=== PATIENT | female | born 1935 | race Caucasian/White ===

== ENCOUNTER 2017-01-23 08:34 | Observation (INO) | payer MEDICARE ==
[2017-01-23 08:34] VITALS: BMI 24.3
[2017-01-23] MEDS ORDERED: DiphenhydrAMINE 50 mg/ml Inj IVP STA ×2 (08:55→17:08)
[2017-01-23] MEDS ORDERED: Sodium Chloride 0.9% 500 ML IV ONE ×2 (08:56→09:35)
[2017-01-23] MEDS ORDERED: DiphenhydrAMINE 50 mg/ml Inj ONE (09:35)
--- NOTE | 2017-01-23 10:12 | C.PDOC ---
History Of Present Illness 81 y/o female presents to the ED for evaluation of lip swelling since yesterday. Patient states that her symptoms developed after coming back from [facility] yesterday. Patient states that her lips were significantly more swollen this morning, which prompted to her visit ED. Notes taking benazepril for approximately 6 months. Otherwise, denies any itchiness, rash, redness, shortness of breath, sensation of throat closing, chest pain, fever/chills. Time Seen by Provider: 01/23/17 08:36 Chief Complaint (Nursing): Allergic Reaction History Per: Patient History/Exam Limitations: no limitations Onset/Duration Of Symptoms: Days (1) Current Symptoms Are (Timing): Still Present Possible Cause: ALEXIS Inhibitor Associated Symptoms: Swelling (lips). denies: Skin Rash, Dyspnea, Trouble Swallowing, Dizziness, Itching, Redness, Chest Pain Severity: Moderate Additional History Per: Patient Past Medical History Reviewed: Historical Data, Nursing Documentation, Vital Signs Vital Signs: Last Vital Signs Temp 98.8 F 01/24/17 08:57 Pulse 62 01/24/17 08:57 Resp 20 01/24/17 08:57 BP 159/71 H 01/24/17 10:17 Pulse Ox 97 01/24/17 08:57 - Medical History PMH: Alzheimer's Disease, Dementia, Gastritis, HTN, Hypercholesterolemia Surgical History: Appendectomy Family History: States: No Known Family Hx - Social History Hx Tobacco Use: No Hx Alcohol Use: No Hx Substance Use: No - Immunization History Hx Tetanus Toxoid Vaccination: No Hx Influenza Vaccination: No Hx Pneumococcal Vaccination: No Review Of Systems Except As Marked, All Systems Reviewed And Found Negative. Constitutional: Negative for: Fever, Chills ENT: Negative for: Throat Pain Cardiovascular: Negative for: Chest Pain, Palpitations Respiratory: Negative for: Cough, Shortness of Breath Gastrointestinal: Negative for: Nausea, Vomiting Skin: Positive for: Other (lip swelling). Negative for: Rash Physical Exam - Physical Exam Appears: Well, Non-toxic, No Acute Distress Skin: Normal Color, Warm, Dry, No Rash Head: Atraumatic, Normacephalic Eye(s): bilateral: Normal Inspection Nose: Normal Tongue: Normal Appearing, No Swelling Lips: Swelling (moderate swelling up lips) Throat: Normal, No Erythema, No Exudate, No Drooling Neck: Normal ROM, Supple Cardiovascular: Rhythm Regular Respiratory: Normal Breath Sounds, No Accessory Muscle Use, No Rales, No Rhonchi , No Stridor, No Wheezing, Other (speaking in full sentences) Gastrointestinal/Abdominal: Normal Exam, Bowel Sounds, Soft, No Tenderness Neurological/Psych: Oriented x3 ED Course And Treatment - Laboratory Results Result Diagrams: 01/24/17 11:33 01/24/17 11:33 ECG: Interpreted By Me, Viewed By Me ECG Rhythm: Sinus Rhythm ECG Interpretation: Normal, No Acute Changes Interpretation Of ECG: Normal axis. No acute ST/T wave changes. Rate From EC (bpm) O2 Sat by Pulse Oximetry: 99 (on RA) Pulse Ox Interpretation: Normal - Other Rad CXR X-Ray: Viewed By Me, Read By Radiologist Interpretation: Accession No. : [id number]. Patient Name / ID : GRETA WEIR / [id number]. Exam Date : 01/23/2017 09:36:00 ( Approved ). Study Comment : Sex / Age : F / 81Y. Creator : Derek Kearney MD. Dictator : Derek Kearney MD. Market Reporter : Sequencing Machine Operator : Derek Kearney MD. Approver2 : Report Date : 01/23/2017 10:44:14. My Comment : . PROCEDURE: CHEST RADIOGRAPH, 1 VIEW. HISTORY: angioedema. COMPARISON: 08/03/2016. FINDINGS: LUNGS: Mild venous congestion. Patchy bibasilar airspace opacities. Right hilar prominence. Upper lobe granulomatous changes. PLEURA: No pneumothorax or pleural fluid seen. CARDIOVASCULAR: Normal. OSSEOUS STRUCTURES: Degenerative changes in the spine and shoulders. VISUALIZED UPPER ABDOMEN: Normal. OTHER FINDINGS: None. IMPRESSION: Mild venous congestion. Patchy bibasilar airspace opacities. Right hilar prominence. Upper lobe granulomatous changes. Progress Note: Blood work, EKG, CXR ordered and reviewed. Patient was treated with IV Benadryl, Solu-Medrol, Pepcid, and IV NS bolus. Symptoms likely due to alexis inhibitor - patient will need obs tele. - Physician Consult Information Physician Contacted: Nathan Allan Outcome Of Conversation: Discussed patient with Dr. Allan, agrees with telemetry obs to his service for lip swelling, likely due to alexis inhibitor angioedema. Disposition - Disposition Disposition: HOSPITALIZED Disposition Time: 11:11 Condition: STABLE - Clinical Impression Clinical Impression: ALEXIS inhibitor-aggravated angioedema, Lip swelling - Scribe Statement The provider has reviewed the documentation as recorded by the Scribe Leni Adler All medical record entries made by the Scribe were at my direction and personally dictated by me. I have reviewed the chart and agree that the record accurately reflects my personal performance of the history, physical exam, medical decision making, and the department course for this patient. I have also personally directed, reviewed, and agree with the discharge instructions and disposition. Decision To Admit - Pt Status Changed To: Hospital Disposition Of: Observation - . Bed Request Type: Telemetry Admitting Physician: Nathan Allan Patient Diagnosis: ALEXIS inhibitor-aggravated angioedema, Lip swelling
[2017-01-23 10:36] LABS: ALBUMIN 3.7 g/dL (3.5-5.0); BASO # 0.1 K/uL (0.0-0.2); BASO % 1.1 % (0.0-2.0); EOS # 0.2 K/uL (0.0-0.7); HEMOGLOBIN 12.3 g/dL (11.0-16.0); LYMPH # 1.8 K/uL (1.0-4.3); LYMPH % 17.8 % (20.0-40.0); MEAN CELL VOLUME 83.9 fL (81.0-99.0); MEAN CORPUSCULAR HEMOGLOBIN 26.4 pg (27.0-31.0); MEAN CORPUSCULAR HGB CONC 31.5 g/dL (33.0-37.0); MEAN PLATELET VOLUME 10.6 fL (7.2-11.7); MONO # 0.5 K/uL (0.0-0.8); MONO % 4.9 % (0.0-10.0); NEUT # 7.5 K/uL (1.8-7.0); NEUT % 74.2 % (50.0-75.0); RBC 4.64 Mil/uL (3.80-5.20); RED CELL DISTRIBUTION WIDTH 13.2 % (11.5-14.5); WHITE BLOOD COUNT 10.1 K/uL (4.8-10.8)
[2017-01-23 10:39] LABS: ALT/SGPT 67 U/L (9-52); AST/SGOT 65 U/L (14-36); BLOOD UREA NITROGEN 21 mg/dL (7-17); GFR AFRICAN-AMERICAN > 60; GFR NON-AFRICAN AMERICAN > 60
[2017-01-23 10:40] LABS: CALCIUM 8.8 mg/dl (8.6-10.4)
--- NOTE | 2017-01-23 10:46 | RAD ---
PROCEDURE: CHEST RADIOGRAPH, 1 VIEW HISTORY: angioedema COMPARISON: 08/03/2016 FINDINGS: LUNGS: Mild venous congestion. Patchy bibasilar airspace opacities. Right hilar prominence. Upper lobe granulomatous changes. PLEURA: No pneumothorax or pleural fluid seen. CARDIOVASCULAR: Normal. OSSEOUS STRUCTURES: Degenerative changes in the spine and shoulders. VISUALIZED UPPER ABDOMEN: Normal. OTHER FINDINGS: None. IMPRESSION: Mild venous congestion. Patchy bibasilar airspace opacities. Right hilar prominence. Upper lobe granulomatous changes.
[2017-01-23 16:36] VITALS: RESP 20
--- NOTE | 2017-01-23 17:49 | CP.PCM.HP ---
<DimasShannan DaleMiquel - Last Filed: 01/23/17 18:57> History of Present Illness - History of Present Illness History of Present Illness: cc: swollen lips Patient is a 81 F with pmh HTN and bradycardia, hypercholesterolemia, gastritis , dementia who presents to ED this morning for swollen lips. Patient woke up at 1am to go to the bathroom and noticed that her lips were swollen in the mirror. Patient went back to sleep and when she awoke at 7am her lips were extremely swollen. Patient's family member called the ambulance. Patient has never had an episode like this previously. Patient denies shortness of breath, cough, sore throat, itching, lip pain, chest pain, palpitations, abdominal pain, nausea, vomiting, constipation, or diarrhea. Patient has not started on any new medications. Patient took none of her medications this morning, but is normally compliant. PMD: Dr. Centeno PMHx: HTN, bradycardia, hypercholesterolemia, gastritis, dementia Psurgical: surgery for achalasia, hemicolectomy Social: denies tobacco, alcohol, drugs, lives in a snf home Meds: Amlodipine/Benezepril 10mg/40mg Aspirin 81mg Carvedilol 12.5 mg BID Protonix 40 mg daily Present on Admission - Present on Admission Any Indicators Present on Admission: No Review of Systems - Constitutional Constitutional: absent: Chills, Daytime Sleepiness, Headache - EENT Eyes: absent: Blurred Vision, Diplopia Ears: absent: Decreased Hearing Nose/Mouth/Throat: Lip Swelling. absent: Hoarsness, Mouth Pain, Sore Throat, Throat Swelling, Tongue Swelling - Cardiovascular Cardiovascular: absent: Chest Pain, Chest Pain with Activity, Diaphoresis, Dyspnea, Dyspnea on Exertion, Edema, Lightheadedness, Palpitations - Respiratory Respiratory: absent: Cough, Wheezing, Stridor, Pain on Inspiration, Chest Congestion - Gastrointestinal Gastrointestinal: absent: Abdominal Pain, Change in Bowel Habits, Constipation, Diarrhea - Genitourinary Genitourinary: absent: Change in Urinary Stream - Integumentary Integumentary: absent: Lesions, Rash, Swelling - Neurological Neurological: Memory Loss. absent: Dizziness, Headaches - Psychiatric Psychiatric: Memory Loss. absent: Behavioral Changes - Endocrine Endocrine: absent: Excessive Sweating, Fatigue - Hematologic/Lymphatic Hematologic: absent: Easy Bleeding, Easy Bruising Past Patient History - Infectious Disease Hx of Infectious Diseases: None - Tetanus Immunizations Tetanus Immunization: Unknown - Past Medical History & Family History Past Medical History?: Yes - Past Social History Smoking Status: Never Smoked - CARDIAC Hx Hypercholesterolemia: Yes Hx Hypertension: Yes - PULMONARY Hx Respiratory Disorders: No - NEUROLOGICAL Hx Alzheimer's Disease: Yes Hx Dementia: Yes - HEENT Hx HEENT Problems: No - RENAL Hx Chronic Kidney Disease: No - ENDOCRINE/METABOLIC Hx Endocrine Disorders: No - HEMATOLOGICAL/ONCOLOGICAL Hx Hepatitis C: Yes - INTEGUMENTARY Hx Dermatological Problems: No - MUSCULOSKELETAL/RHEUMATOLOGICAL Hx Falls: No - GASTROINTESTINAL Hx Crohn's Disease: No Hx Gastritis: Yes - GENITOURINARY/GYNECOLOGICAL Hx Genitourinary Disorders: No - PSYCHIATRIC Hx Substance Use: No - SURGICAL HISTORY Hx Appendectomy: Yes - ANESTHESIA Hx Anesthesia: Yes Hx Anesthesia Reactions: No Hx Malignant Hyperthermia: No Meds Allergies/Adverse Reactions: Allergies Allergy/AdvReac Type Severity Reaction Status Date / Time No Known Allergies Allergy Verified 01/23/17 08:42 Physical Exam - Constitutional Appears: Well, Non-toxic, No Acute Distress - Head Exam Head Exam: ATRAUMATIC, NORMAL INSPECTION, NORMOCEPHALIC - Eye Exam Eye Exam: EOMI, Normal appearance, PERRL - ENT Exam ENT Exam: Mucous Membranes Moist Additional comments: both lips swollen - Expanded ENT Exam Expanded Mouth exam: tongue normal Throat exam: Normal Inspection. absent: Post Pharyngeal Edema - Neck Exam Neck exam: Positive for: Full Rom, Normal Inspection. Negative for: Lymphadenopathy - Respiratory Exam Respiratory Exam: Clear to Auscultation Bilateral, NORMAL BREATHING PATTERN. absent: Rales, Rhonchi, Wheezes, Respiratory Distress, Stridor - Cardiovascular Exam Cardiovascular Exam: REGULAR RHYTHM, RRR. absent: Systolic Murmur - GI/Abdominal Exam GI & Abdominal Exam: Normal Bowel Sounds, Soft. absent: Distended, Firm, Guarding, Tenderness - Extremities Exam Extremities exam: Positive for: normal inspection. Negative for: calf tenderness, pedal edema, tenderness - Back Exam Back exam: NORMAL INSPECTION. absent: rash noted - Neurological Exam Neurological exam: Alert, Oriented x3 - Psychiatric Exam Psychiatric exam: Normal Affect, Normal Mood - Skin Skin Exam: Intact, Normal Color, Warm Results - Vital Signs Recent Vital Signs: Last Vital Signs Temp 97.9 F 01/23/17 15:34 Pulse 69 01/23/17 15:34 Resp 20 01/23/17 15:34 BP 146/78 01/23/17 17:29 Pulse Ox 98 01/23/17 15:34 - Labs Result Diagrams: 01/23/17 10:22 01/23/17 10:22 Assessment & Plan - Assessment and Plan (Free Text) Assessment: 1. Angioedema most likely secondary to ACEI (home medication: Benazepril) Benadryl 25 mg and [id number] given in ED Benadryl 25mg given at 3pm (continue Benadryl 25mg BID) 2.HTN Amlodipine 10 mg PO daily Aspirin 81 mg PO daily Carvedilol 12.5 mg PO BID 3. Prophylactic Measure Heparin 5000 u SC Q12 SCDs Pepcid 20 mg PO BID <Nathan Allan - Last Filed: 01/24/17 13:38> Results - Vital Signs Recent Vital Signs: Last Vital Signs Temp 98.8 F 01/24/17 08:57 Pulse 62 01/24/17 08:57 Resp 20 01/24/17 08:57 BP 159/71 H 01/24/17 10:17 Pulse Ox 97 01/24/17 08:57 - Labs Result Diagrams: 01/24/17 11:33 01/24/17 11:33 Labs: Laboratory Results - last 24 hr 01/24/17 01/24/17 11:33 11:33 WBC 15.2 H D RBC 4.64 Hgb 12.3 Hct 38.5 MCV 83.0 MCH 26.6 L MCHC 32.0 L RDW 13.2 Plt Count 268 MPV 10.8 Neut % (Auto) 85.5 H Lymph % (Auto) 11.2 L [place] % (Auto) 2.9 Eos % (Auto) 0.0 Baso % (Auto) 0.4 Neut # 13.0 H Lymph # 1.7 [place] # 0.4 Eos # 0.0 Baso # 0.1 Sodium 137 Potassium 4.4 Chloride 99 Carbon Dioxide 27 Anion Gap 16 BUN 18 H Creatinine 0.8 Est GFR ( Amer) > 60 Est GFR (Non-Af Amer) > 60 Random Glucose 175 H Calcium 9.5 Total Bilirubin 0.6 AST 39 H D ALT 65 H Alkaline Phosphatase 103 Total Protein 7.6 Albumin 3.9 Globulin 3.7 Albumin/Globulin Ratio 1.1 Attending/Attestation - Attestation I have personally seen and examined this patient.: Yes I have fully participated in the care of the patient.: Yes I have reviewed all pertinent clinical information: Yes Notes (Text): 01/24/17 13:37 Patient seen and examined at bedside with the resident Patient is admitted for angioedema secondary to ALEXIS inhibitor She does not have any respiratory distress She received a stat dose of IV Solu-Medrol in the ER We will start the patient on prednisone and Benadryl We will monitor for any swelling of the tongue or throat I discussed the plan of care with the resident and agree with the history and physical and assessment/plan documented by the resident.
[2017-01-24 08:59] VITALS: BP 159/71; PULSE 62; TEMP 98.8
[2017-01-24] MEDS ORDERED: Pantoprazole 40 mg EC Tab PO SCH (10:00)
[2017-01-24 11:39] LABS: BASO # 0.1 K/uL (0.0-0.2); HEMOGLOBIN 12.3 g/dL (11.0-16.0); MONO # 0.4 K/uL (0.0-0.8); MONO % 2.9 % (0.0-10.0)
[2017-01-24 11:47] LABS: BASO % 0.4 % (0.0-2.0); LYMPH # 1.7 K/uL (1.0-4.3); LYMPH % 11.2 % (20.0-40.0); MEAN CORPUSCULAR HEMOGLOBIN 26.6 pg (27.0-31.0); MEAN PLATELET VOLUME 10.8 fL (7.2-11.7); NEUT % 85.5 % (50.0-75.0); RBC 4.64 Mil/uL (3.80-5.20); RED CELL DISTRIBUTION WIDTH 13.2 % (11.5-14.5)
[2017-01-24 11:53] LABS: ALBUMIN 3.9 g/dL (3.5-5.0)
[2017-01-24 11:55] LABS: GFR AFRICAN-AMERICAN > 60; GFR NON-AFRICAN AMERICAN > 60
[2017-01-24 11:56] LABS: ALB/GLOB RATIO 1.1 (1.0-2.1); ALT/SGPT 65 U/L (9-52); AST/SGOT 39 U/L (14-36); BLOOD UREA NITROGEN 18 mg/dL (7-17); CALCIUM 9.5 mg/dl (8.6-10.4); WHITE BLOOD COUNT 15.2 K/uL (4.8-10.8)
[2017-01-24] MEDS ORDERED: Pneumococcal 23-Valent Vaccine IM ONE (15:01)
--- NOTE | 2017-01-24 15:09 | CP.PCM.DIS ---
<Shannan Cochran - Last Filed: 01/24/17 15:01> Provider - Provider Date of Admission: 01/23/17 11:11 Attending physician: Nathan Allan MD Primary care physician: Dr. Centeno Time Spent in preparation of Discharge (in minutes): 45 Diagnosis - Discharge Diagnosis (1) Angioedema Status: Acute Comment: please see summary for details (2) Hypertension Status: Acute Comment: please see summary for details Hospital Course - Lab Results Lab Results: Most Recent Lab Values WBC 15.2 K/uL (4.8-10.8) H D 01/24/17 11:33 RBC 4.64 Mil/uL (3.80-5.20) 01/24/17 11:33 Hgb 12.3 g/dL (11.0-16.0) 01/24/17 11:33 Hct 38.5 % (34.0-47.0) 01/24/17 11:33 MCV 83.0 fL (81.0-99.0) 01/24/17 11:33 MCH 26.6 pg (27.0-31.0) L 01/24/17 11:33 MCHC 32.0 g/dL (33.0-37.0) L 01/24/17 11:33 RDW 13.2 % (11.5-14.5) 01/24/17 11:33 Plt Count 268 K/uL (130-400) 01/24/17 11:33 MPV 10.8 fL (7.2-11.7) 01/24/17 11:33 Neut % (Auto) 85.5 % (50.0-75.0) H 01/24/17 11:33 Lymph % (Auto) 11.2 % (20.0-40.0) L 01/24/17 11:33 [place] % (Auto) 2.9 % (0.0-10.0) 01/24/17 11:33 Eos % (Auto) 0.0 % (0.0-4.0) 01/24/17 11:33 Baso % (Auto) 0.4 % (0.0-2.0) 01/24/17 11:33 Neut # 13.0 K/uL (1.8-7.0) H 01/24/17 11:33 Lymph # 1.7 K/uL (1.0-4.3) 01/24/17 11:33 [place] # 0.4 K/uL (0.0-0.8) 01/24/17 11:33 Eos # 0.0 K/uL (0.0-0.7) 01/24/17 11:33 Baso # 0.1 K/uL (0.0-0.2) 01/24/17 11:33 Sodium 137 mmol/L (132-148) 01/24/17 11:33 Potassium 4.4 mmol/L (3.6-5.2) 01/24/17 11:33 Chloride 99 mmol/L (98-107) 01/24/17 11:33 Carbon Dioxide 27 mmol/L (22-30) 01/24/17 11:33 Anion Gap 16 (10-20) 01/24/17 11:33 BUN 18 mg/dL (7-17) H 01/24/17 11:33 Creatinine 0.8 MG/DL (0.7-1.2) 01/24/17 11:33 Est GFR ( Amer) > 60 01/24/17 11:33 Est GFR (Non-Af Amer) > 60 01/24/17 11:33 Random Glucose 175 mg/dL (65-105) H 01/24/17 11:33 Calcium 9.5 mg/dl (8.6-10.4) 01/24/17 11:33 Total Bilirubin 0.6 mg/dL (0.2-1.3) 01/24/17 11:33 AST 39 U/L (14-36) H D 01/24/17 11:33 ALT 65 U/L (9-52) H 01/24/17 11:33 Alkaline Phosphatase 103 U/L (38-126) 01/24/17 11:33 Total Creatine Kinase 70 U/L (30-135) 01/23/17 10:22 Troponin I < 0.0120 ng/mL (0.00-0.120) 01/23/17 10:22 Total Protein 7.6 g/dL (6.3-8.3) 01/24/17 11:33 Albumin 3.9 g/dL (3.5-5.0) 01/24/17 11:33 Globulin 3.7 gm/dL (2.2-3.9) 01/24/17 11:33 Albumin/Globulin Ratio 1.1 (1.0-2.1) 01/24/17 11:33 - Hospital Course Hospital Course: "cc: swollen lips Patient is a 81 F with pmh HTN and bradycardia, hypercholesterolemia, gastritis , dementia who presents to ED this morning for swollen lips. Patient woke up at 1am to go to the bathroom and noticed that her lips were swollen in the mirror. Patient went back to sleep and when she awoke at 7am her lips were extremely swollen. Patient's family member called the ambulance. Patient has never had an episode like this previously. Patient denies shortness of breath, cough, sore throat, itching, lip pain, chest pain, palpitations, abdominal pain, nausea, vomiting, constipation, or diarrhea. Patient has not started on any new medications. Patient took none of her medications this morning, but is normally compliant." Patient admitted to the hospital for angioedema. Patient given Benadryl 25 mg and [id number] given in ED. Another dose of Benadryl 25mg given at 3pm. Home medication of Lotrel was stopped due to Benazepril. Amlodipine 10 mg given instead. Other home medications for hypertension were continued. Patient had no swelling of tongue or airway. Patient's lip swelling decreased. Patient to go home on 2 more days of Prednisone 30 mg daily and Benadryl 25mg BID. Patient cleared for discharge as per Dr. Allan. This is a summary of the hospital course. Please see chart for full details. Discharge Exam - Head Exam Head Exam: ATRAUMATIC, NORMAL INSPECTION, NORMOCEPHALIC - Eye Exam Eye Exam: EOMI, Normal appearance, PERRL - ENT Exam ENT Exam: Mucous Membranes Moist Additional comments: lips less edematous no tongue or airway edema - Neck Exam Neck exam: Full Rom - Respiratory Exam Respiratory Exam: Clear to PA & Lateral, NORMAL BREATHING PATTERN, UNREMARKABLE - Cardiovascular Exam Cardiovascular Exam: REGULAR RHYTHM, RRR - GI/Abdominal Exam GI & Abdominal Exam: Normal Bowel Sounds, Unremarkable. absent: Distended, Firm - Extremities Exam Extremities exam: full ROM, normal inspection - Back Exam Back exam: NORMAL INSPECTION. absent: rash noted - Neurological Exam Neurological exam: Alert, Oriented x3 - Psychiatric Exam Psychiatric exam: Normal Affect, Normal Mood - Skin Skin Exam: Intact, Normal Color, Warm Discharge Plan - Discharge Medications Prescriptions: amLODIPine [Norvasc] 10 mg PO DAILY #30 tab DiphenhydrAMINE [Benadryl] 25 mg PO BID #4 cap predniSONE [predniSONE Tab] 30 mg PO ONCE #2 tab - Follow Up Plan Condition: FAIR Disposition: HOME/ ROUTINE Instructions: Prednisone (By mouth), Diphenhydramine (By mouth), Amlodipine ( By mouth), Anaphylaxis (DC) Additional Instructions: Patient cleared for discharge as per Dr. Allan. Patient to follow up with primary care doctor, Dr. Centeno within one week of discharge. Patient to continue home medications as described below: Aspirin 81mg daily Carvedilol 12.5mg twice a day Protonix 40mg daily Patient should NOT take home medication Lotrel. (patient has allergic reaction to Benazepril) Patient should not take any ALEXSI Inhibitor medications in the future due angioedema. Patient should take the following new medications: Amlodipine 10 mg daily Prednisone 10mg once a day for 2 days Benadryl 25mg cap twice a day for 2 days (which can make you drowsy, take carefully) Patient should return to the emergency room Immediately if symptoms worsen or return. Instructions discussed with patient who understood and agreed. Referrals: Sheryl Centeno MD [Staff Provider] - <Nathan Allan - Last Filed: 01/24/17 16:38> Provider - Provider Date of Admission: 01/23/17 11:11 Attending physician: Nathan Allan MD Hospital Course - Lab Results Lab Results: Most Recent Lab Values WBC 15.2 K/uL (4.8-10.8) H D 01/24/17 11:33 RBC 4.64 Mil/uL (3.80-5.20) 01/24/17 11:33 Hgb 12.3 g/dL (11.0-16.0) 01/24/17 11:33 Hct 38.5 % (34.0-47.0) 01/24/17 11:33 MCV 83.0 fL (81.0-99.0) 01/24/17 11:33 MCH 26.6 pg (27.0-31.0) L 01/24/17 11:33 MCHC 32.0 g/dL (33.0-37.0) L 01/24/17 11:33 RDW 13.2 % (11.5-14.5) 01/24/17 11:33 Plt Count 268 K/uL (130-400) 01/24/17 11:33 MPV 10.8 fL (7.2-11.7) 01/24/17 11:33 Neut % (Auto) 85.5 % (50.0-75.0) H 01/24/17 11:33 Lymph % (Auto) 11.2 % (20.0-40.0) L 01/24/17 11:33 [place] % (Auto) 2.9 % (0.0-10.0) 01/24/17 11:33 Eos % (Auto) 0.0 % (0.0-4.0) 01/24/17 11:33 Baso % (Auto) 0.4 % (0.0-2.0) 01/24/17 11:33 Neut # 13.0 K/uL (1.8-7.0) H 01/24/17 11:33 Lymph # 1.7 K/uL (1.0-4.3) 01/24/17 11:33 [place] # 0.4 K/uL (0.0-0.8) 01/24/17 11:33 Eos # 0.0 K/uL (0.0-0.7) 01/24/17 11:33 Baso # 0.1 K/uL (0.0-0.2) 01/24/17 11:33 Sodium 137 mmol/L (132-148) 01/24/17 11:33 Potassium 4.4 mmol/L (3.6-5.2) 01/24/17 11:33 Chloride 99 mmol/L (98-107) 01/24/17 11:33 Carbon Dioxide 27 mmol/L (22-30) 01/24/17 11:33 Anion Gap 16 (10-20) 01/24/17 11:33 BUN 18 mg/dL (7-17) H 01/24/17 11:33 Creatinine 0.8 MG/DL (0.7-1.2) 01/24/17 11:33 Est GFR ( Amer) > 60 01/24/17 11:33 Est GFR (Non-Af Amer) > 60 01/24/17 11:33 Random Glucose 175 mg/dL (65-105) H 01/24/17 11:33 Calcium 9.5 mg/dl (8.6-10.4) 01/24/17 11:33 Total Bilirubin 0.6 mg/dL (0.2-1.3) 01/24/17 11:33 AST 39 U/L (14-36) H D 01/24/17 11:33 ALT 65 U/L (9-52) H 01/24/17 11:33 Alkaline Phosphatase 103 U/L (38-126) 01/24/17 11:33 Total Creatine Kinase 70 U/L (30-135) 01/23/17 10:22 Troponin I < 0.0120 ng/mL (0.00-0.120) 01/23/17 10:22 Total Protein 7.6 g/dL (6.3-8.3) 01/24/17 11:33 Albumin 3.9 g/dL (3.5-5.0) 01/24/17 11:33 Globulin 3.7 gm/dL (2.2-3.9) 01/24/17 11:33 Albumin/Globulin Ratio 1.1 (1.0-2.1) 01/24/17 11:33 Attending/Attestation - Attestation I have personally seen and examined this patient.: Yes I have fully participated in the care of the patient.: Yes I have reviewed all pertinent clinical information, including history, physical exam and plan: Yes Notes (Text): 01/24/17 16:38 Patient was seen and examined at bedside with the resident Patient to is feeling much better and the leg swelling is improved We will discharge the patient home We will give 2 days of for prednisone and Benadryl on discharge Patient will follow with primary care doctor and with her weight guesser upon discharge I agree with the discharge note by the resident
--- NOTE | 2017-01-25 13:37 | CARD ---
APPROVED REPORT EKG Measurement Heart [id number] <Conclusion> Normal sinus rhythm with sinus arrhythmia Normal ECG
[2017-02-02 08:52] VITALS: O2SAT 99
== END 2017-01-24 15:20 | disposition home or self-care (01) ==
LOC: C.ER 08:34 → C.9E 11:11 → C.6T 12:18
PROVIDERS: ADMIT Internal Medicine; ATTEND Internal Medicine
DX: T78.3XXA Angioneurotic edema, initial encounter (principal); E78.00 Pure hypercholesterolemia, unspecified; F02.80 Dementia in other diseases classified elsewhere, unspecified severity, without behavioral disturbance, psychotic disturbance, mood disturbance, and anxiety; I10 Essential (primary) hypertension
CPT/HCPCS: 36415; 71010; 80053; 82550; 84484; 85025; 93005; 96372; 96374; 96375; 96376; 99285; G0378; J1200; J1644; J2930; J7040

== ENCOUNTER 2017-05-05 15:05 | Observation (INO) | payer MEDICARE ==
[2017-05-05 15:05] VITALS: BMI 24.3
[2017-05-05] MEDS ORDERED: Sodium Chloride 0.9% 500 ML IV ONE ×3 (15:47→17:30)
--- NOTE | 2017-05-05 16:20 | C.PDOC ---
History Of Present Illness 82 y/o female brought in by EMS for diaphoresis and feeling very weak at home [employer]. Patient called her neighbors stating she was not feeling well. Her neighbors then found her diaphoretic and weak then called EMS. Patient has no specific complaints. Denies cough, URI symptoms, or vomiting. Patient is awake & alert, but her daughter notes she is more confused than usual. In ER patient has a low temp of 92 rectal. Time Seen by Provider: 05/05/17 15:28 Chief Complaint (Nursing): Weakness/Neurological Deficit History Per: Patient History/Exam Limitations: no limitations Onset/Duration Of Symptoms: Hrs Current Symptoms Are (Timing): Still Present Severity: Mild Recent travel outside of the [place]: No Additional History Per: Patient Past Medical History Reviewed: Historical Data, Nursing Documentation, Vital Signs Vital Signs: Last Vital Signs Temp 93.7 F L 05/05/17 17:22 Pulse 53 L 05/05/17 17:22 Resp 20 05/05/17 17:22 BP 103/54 L 05/05/17 17:22 Pulse Ox 100 05/05/17 17:22 - Medical History PMH: Alzheimer's Disease, Dementia, Gastritis, HTN, Hypercholesterolemia Denies: Crohn's Disease, Chronic Kidney Disease Surgical History: Appendectomy Family History: States: Unknown Family Hx - Social History Hx Tobacco Use: No Hx Alcohol Use: No Hx Substance Use: No - Immunization History Hx Tetanus Toxoid Vaccination: No Hx Influenza Vaccination: No Hx Pneumococcal Vaccination: No Review Of Systems Except As Marked, All Systems Reviewed And Found Negative. Constitutional: Positive for: Sweats, Weakness. Negative for: Fever ENT: Negative for: Nose Discharge, Nose Congestion, Throat Pain Respiratory: Negative for: Cough Gastrointestinal: Negative for: Vomiting Physical Exam - Physical Exam Appears: Non-toxic, No Acute Distress Skin: Warm, Dry Head: Atraumatic, Normacephalic Ear(s): Bilateral: Normal Oral Mucosa: Moist Throat: Normal, No Erythema Neck: Supple Chest: Symmetrical Cardiovascular: Rhythm Regular, No Murmur Respiratory: Normal Breath Sounds, No Rales, No Rhonchi, No Wheezing Gastrointestinal/Abdominal: Soft, No Tenderness Neurological/Psych: Oriented x3 ED Course And Treatment - Laboratory Results Result Diagrams: 05/05/17 16:21 05/05/17 16:57 Lab Interpretation: Abnormal (mild hyponatremia) O2 Sat by Pulse Oximetry: 100 (RA) Pulse Ox Interpretation: Normal - Radiology CXR: Viewed By Me, Read By Radiologist CXR Interpretation: Yes: No Acute Disease Reevaluation Time: 17:33 Reassessment Condition: Improved (but still hypothermic.) - Physician Consult Information Time Consulting Physician Contacted: 17:33 Physician Contacted: Sheryl Centeno Outcome Of Conversation: Patient to be admitted for hypothermia Medical Decision Making Medical Decision Making: Plans: * Blood labs * CXR * IV fluids * UA Disposition - Disposition Disposition: HOSPITALIZED Disposition Time: 17:34 Condition: STABLE - POA Present On Arrival: None - Clinical Impression Clinical Impression: Hypothermia - Scribe Statement The provider has reviewed the documentation as recorded by the Scribe Zain boyd All medical record entries made by the Scribe were at my direction and personally dictated by me. I have reviewed the chart and agree that the record accurately reflects my personal performance of the history, physical exam, medical decision making, and the department course for this patient. I have also personally directed, reviewed, and agree with the discharge instructions and disposition.
--- NOTE | 2017-05-05 16:23 | RAD ---
PROCEDURE: CHEST RADIOGRAPH, 1 VIEW HISTORY: SOB COMPARISON: 01/23/2017 FINDINGS: LUNGS: Linear scar/ atelectasis at right base. No infiltrate elsewhere. PLEURA: No pneumothorax or pleural fluid seen. CARDIOVASCULAR: Normal. OSSEOUS STRUCTURES: No significant abnormalities. VISUALIZED UPPER ABDOMEN: Normal. OTHER FINDINGS: None. IMPRESSION: Right basilar linear scar/ atelectasis. Otherwise unremarkable.
[2017-05-05 16:30] LABS: BASO # 0.1 K/uL (0.0-0.2); BASO % 1.2 % (0.0-2.0); EOS # 0.1 K/uL (0.0-0.7); EOS % 1.1 % (0.0-4.0); HEMATOCRIT 43.4 % (34.0-47.0); LYMPH # 2.4 K/uL (1.0-4.3); LYMPH % 23.4 % (20.0-40.0); MEAN CELL VOLUME 83.7 fL (81.0-99.0); MEAN CORPUSCULAR HEMOGLOBIN 27.7 pg (27.0-31.0); MEAN CORPUSCULAR HGB CONC 33.1 g/dL (33.0-37.0); MEAN PLATELET VOLUME 11.3 fL (7.2-11.7); MONO # 0.7 K/uL (0.0-0.8); RED CELL DISTRIBUTION WIDTH 13.4 % (11.5-14.5); WHITE BLOOD COUNT 10.3 K/uL (4.8-10.8)
[2017-05-05 16:36] LABS: RBC URINE < 1 /hpf (0-3); URINE BACTERIA OCC (<OCC); URINE BILIRUBIN NEGATIVE (NEGATIVE); URINE BLOOD NEGATIVE (NEGATIVE); URINE COLOR Yellow (YELLOW); URINE GLUCOSE (UA) 1+ mg/dL (Normal); URINE KETONE NEGATIVE (NEGATIVE); URINE LEUKOCYTE ESTERASE NEG Leu/uL (Negative); URINE PROTEIN NEGATIVE (NEGATIVE); URINE UROBILINOGEN NORMAL mg/dL (0.2-1.0); WBC URINE 4 /hpf (0-5)
[2017-05-05 17:11] LABS: CHLORIDE 100 mmol/L (98-107); POTASSIUM 3.6 mmol/L (3.6-5.2); SODIUM 131 mmol/L (132-148)
[2017-05-05 17:13] LABS: BILIRUBIN,TOTAL 0.8 mg/dL (0.2-1.3); CARBON DIOXIDE 23 mmol/L (22-30); GFR AFRICAN-AMERICAN > 60
[2017-05-05 17:14] LABS: ALKALINE PHOSPHATASE 115 U/L (38-126); ALT/SGPT 39 U/L (9-52); AST/SGOT 39 U/L (14-36); BLOOD UREA NITROGEN 11 mg/dL (7-17); CALCIUM 8.2 mg/dl (8.6-10.4); GLUCOSE,RANDOM 120 mg/dL (65-105); TOTAL PROTEIN 7.2 g/dL (6.3-8.3)
[2017-05-05 17:23] VITALS: RESP 20
[2017-05-05 18:20] LABS: FREE T4 1.9 ng/dL (0.78-2.19)
[2017-05-05 18:34] LABS: THYROID STIMULATING HORMONE 2.05 mIU/L (0.46-4.68)
[2017-05-05] MEDS ORDERED: Potassium Chloride 20 MEQ in Dextrose 5%/0.9% NS 1,000 ML IV SCH (20:15)
[2017-05-06 08:03] LABS: BASO # 0.1 K/uL (0.0-0.2); BASO % 1.3 % (0.0-2.0); EOS # 0.1 K/uL (0.0-0.7); EOS % 1.5 % (0.0-4.0); HEMATOCRIT 39.3 % (34.0-47.0); LYMPH # 2.1 K/uL (1.0-4.3); LYMPH % 28.5 % (20.0-40.0); MEAN CORPUSCULAR HEMOGLOBIN 27.3 pg (27.0-31.0); MEAN CORPUSCULAR HGB CONC 32.5 g/dL (33.0-37.0); MEAN PLATELET VOLUME 11.2 fL (7.2-11.7); MONO # 0.5 K/uL (0.0-0.8); MONO % 7.3 % (0.0-10.0); RED CELL DISTRIBUTION WIDTH 13.7 % (11.5-14.5); WHITE BLOOD COUNT 7.5 K/uL (4.8-10.8)
[2017-05-06 08:29] LABS: CHLORIDE 101 mmol/L (98-107); POTASSIUM 4.1 mmol/L (3.6-5.2); SODIUM 134 mmol/L (132-148)
[2017-05-06 08:31] LABS: GFR AFRICAN-AMERICAN > 60
[2017-05-06 08:32] LABS: BLOOD UREA NITROGEN 11 mg/dL (7-17); CARBON DIOXIDE 24 mmol/L (22-30); GLUCOSE,RANDOM 103 mg/dL (65-105); PHOSPHOROUS 3.1 mg/dL (2.5-4.5)
[2017-05-06 08:33] LABS: CALCIUM 8.3 mg/dl (8.6-10.4); MAGNESIUM 1.9 mg/dL (1.6-2.3)
[2017-05-06] MEDS: Pantoprazole 40 mg EC Tab PO SCH (09:59)
[2017-05-06] MEDS: Enoxaparin 40 mg Syringe SC SCH (09:59)
--- NOTE | 2017-05-06 13:41 | CP.PCM.PN ---
Subjective - Date & Time of Evaluation Date of Evaluation: 05/06/17 Time of Evaluation: 13:39 - Subjective Subjective: Pt admitted following co of malaise hypothermia and hypotenison . Pt hydrated overnight and cultured. Today feeling better , no low temp Urine + gneg rods Objective - Vital Signs/Intake and Output Vital Signs (last 24 hours): Temp Pulse Resp BP Pulse Ox 97.5 F L 62 20 133/75 99 05/06/17 08:33 05/06/17 08:33 05/06/17 08:33 05/06/17 08:33 05/06/17 08:33 Intake and Output: 05/06/17 05/06/17 06:59 18:59 Intake Total 840 Balance 840 - Medications Medications: Current Medications Aspirin (Ecotrin) 81 mg PO DAILY [facility] Last Admin: 05/06/17 09:59 Dose: 81 mg Carvedilol (Coreg) 3.125 mg PO BID [facility] Last Admin: 05/06/17 09:59 Dose: 3.125 mg Enoxaparin Sodium (Lovenox) 40 mg SC DAILY [facility] Last Admin: 05/06/17 09:59 Dose: 40 mg Potassium Chloride 20 meq/ (Dextrose/Sodium Chloride) 1,010 mls @ 80 mls/hr IV .[id number] [facility] Stop: 05/06/17 21:15 Last Admin: 05/05/17 21:27 Dose: 80 mls/hr Ceftriaxone Sodium (Rocephin Iv 1 Gm Duplex) 50 mls @ 100 mls/hr IVPB DAILY [facility] Pantoprazole Sodium (Protonix Ec Tab) 40 mg PO DAILY [facility] Last Admin: 05/06/17 09:59 Dose: 40 mg Pneumococcal Polyvalent Vaccine (Pneumovax 23 Vaccine) 0.5 ml IM .ONCE ONE Stop: 05/08/17 10:01 - Labs Labs: 05/06/17 07:50 05/06/17 07:50 - Constitutional Appears: No Acute Distress - Head Exam Head Exam: NORMAL INSPECTION - Eye Exam Eye Exam: Normal appearance - ENT Exam ENT Exam: Mucous Membranes Moist - Respiratory Exam Respiratory Exam: Clear to Ausculation Bilateral - Cardiovascular Exam Cardiovascular Exam: REGULAR RHYTHM - GI/Abdominal Exam GI & Abdominal Exam: Normal Bowel Sounds Assessment and Plan - Assessment and Plan (Free Text) Assessment: sp hypothermia and htn hydrated bp now stable holing one of her bp meds gnegative rods start rocephin
--- NOTE | 2017-05-06 13:49 | CP.PCM.HP ---
History of Present Illness - History of Present Illness History of Present Illness: Pt brought to Er after complaining she was not feeling well in ER found to be hypothermic with a temp of 92. Pt was also hypotensive. pt was admitted for observation ro sepsis and for hydration social: no smoking, no ETOH, no drugs PHMx: Mother, breast CA PShx: HTN, Achalasia of cardia Colon surgery for mass Pre-diabetes Dementia Meds:Risperidone 0.25mg QD Aricept 5mg QD Aspirin 81mg QD Amlodipine 10mg QD Vitamin B comp. with Vitamin c no. 6 QD Carvedilol 12.5 mg BID Strovite Advanced QD Present on Admission - Present on Admission Any Indicators Present on Admission: No Review of Systems - Review of Systems Systems not reviewed;Unavailable: Unstable Vital Signs - Constitutional Constitutional: Chills Past Patient History - Infectious Disease Hx of Infectious Diseases: None - Tetanus Immunizations Tetanus Immunization: Unknown - Past Medical History & Family History Past Medical History?: Yes - Past Social History Smoking Status: Never Smoked - CARDIAC Hx Cardiac Disorders: Yes Hx Hypercholesterolemia: Yes Hx Hypertension: Yes - PULMONARY Hx Respiratory Disorders: No - NEUROLOGICAL Hx Neurological Disorder: Yes Hx Alzheimer's Disease: Yes Hx Dementia: Yes - HEENT Hx HEENT Problems: No - RENAL Hx Chronic Kidney Disease: No - ENDOCRINE/METABOLIC Hx Endocrine Disorders: No - HEMATOLOGICAL/ONCOLOGICAL Hx Blood Disorders: Yes Hx Hepatitis C: Yes - INTEGUMENTARY Hx Dermatological Problems: No - MUSCULOSKELETAL/RHEUMATOLOGICAL Hx Musculoskeletal Disorders: No Hx Falls: No - GASTROINTESTINAL Hx Gastrointestinal Disorders: Yes Hx Crohn's Disease: No Hx Gastritis: Yes - GENITOURINARY/GYNECOLOGICAL Hx Genitourinary Disorders: No - PSYCHIATRIC Hx Psychophysiologic Disorder: No Hx Substance Use: No - SURGICAL HISTORY Hx Surgeries: Yes Hx Appendectomy: Yes - ANESTHESIA Hx Anesthesia: Yes Hx Anesthesia Reactions: No Hx Malignant Hyperthermia: No Meds Home Medications: Home Medication List Medication Instructions Recorded Confirmed Type Aspirin [Ecotrin] 81 mg PO DAILY #30 tabec 05/07/17 Rx Carvedilol [Coreg] 3.125 mg PO BID #60 tab 05/07/17 Rx Ciprofloxacin [Cipro] 250 mg PO BID #20 tab 05/07/17 Rx Pantoprazole [Protonix EC Tab] 40 mg PO DAILY ect 05/07/17 Rx Allergies/Adverse Reactions: Allergies Allergy/AdvReac Type Severity Reaction Status Date / Time benazepril AdvReac ANGIOEDEMA Verified 01/25/17 15:13 Physical Exam - Constitutional Appears: Non-toxic - Eye Exam Eye Exam: EOMI, PERRL - ENT Exam ENT Exam: Mucous Membranes Moist - Respiratory Exam Respiratory Exam: Clear to Auscultation Bilateral - Cardiovascular Exam Cardiovascular Exam: REGULAR RHYTHM - GI/Abdominal Exam GI & Abdominal Exam: Normal Bowel Sounds Results - Vital Signs Recent Vital Signs: Last Vital Signs Temp 97.5 F L 05/06/17 08:33 Pulse 62 05/06/17 08:33 Resp 20 05/06/17 08:33 BP 133/75 05/06/17 08:33 Pulse Ox 99 05/06/17 08:33 - Labs Result Diagrams: 05/06/17 07:50 05/06/17 07:50 Labs: Laboratory Results - last 24 hr 05/05/17 05/05/17 05/05/17 15:48 16:14 16:21 WBC 10.3 RBC 5.18 Hgb 14.3 D Hct 43.4 MCV 83.7 MCH 27.7 MCHC 33.1 RDW 13.4 Plt Count 175 MPV 11.3 Neut % (Auto) 67.3 Lymph % (Auto) 23.4 [place] % (Auto) 7.0 Eos % (Auto) 1.1 Baso % (Auto) 1.2 Neut # 6.9 Lymph # 2.4 Peach # 0.7 Eos # 0.1 Baso # 0.1 Sodium Potassium Chloride Carbon Dioxide Anion Gap BUN Creatinine Est GFR ( Amer) Est GFR (Non-Af Amer) POC Glucose (mg/dL) 121 H Random Glucose Calcium Phosphorus Magnesium Total Bilirubin AST ALT Alkaline Phosphatase Total Protein Albumin Globulin Albumin/Globulin Ratio Free T4 TSH 3rd Generation Cortisol AM Sample Urine Color Yellow Urine Clarity Clear Urine pH 8.0 Ur Specific [place] 1.008 Urine Protein Negative Urine Glucose (UA) 1+ Urine Ketones Negative Urine Blood Negative Urine Nitrate Negative Urine Bilirubin Negative Urine Urobilinogen Normal Ur Leukocyte Esterase Neg Urine WBC (Auto) 4 Urine RBC (Auto) < 1 Ur Squamous Epith Cells 8 H Urine Bacteria Occ H 05/05/17 05/05/17 05/06/17 16:57 17:39 07:50 WBC 7.5 RBC 4.68 Hgb 12.8 Hct 39.3 MCV 84.0 MCH 27.3 MCHC 32.5 L RDW 13.7 Plt Count 168 MPV 11.2 Neut % (Auto) 61.4 Lymph % (Auto) 28.5 [place] % (Auto) 7.3 Eos % (Auto) 1.5 Baso % (Auto) 1.3 Neut # 4.6 Lymph # 2.1 Peach # 0.5 Eos # 0.1 Baso # 0.1 Sodium 131 L Potassium 3.6 Chloride 100 Carbon Dioxide 23 Anion Gap 13 BUN 11 Creatinine 0.7 Est GFR ( Amer) > 60 Est GFR (Non-Af Amer) > 60 POC Glucose (mg/dL) Random Glucose 120 H Calcium 8.2 L Phosphorus Magnesium Total Bilirubin 0.8 AST 39 H ALT 39 Alkaline Phosphatase 115 Total Protein 7.2 Albumin 3.7 Globulin 3.5 Albumin/Globulin Ratio 1.0 Free T4 1.90 TSH 3rd Generation 2.05 Cortisol AM Sample Urine Color Urine Clarity Urine pH Ur Specific [place] Urine Protein Urine Glucose (UA) Urine Ketones Urine Blood Urine Nitrate Urine Bilirubin Urine Urobilinogen Ur Leukocyte Esterase Urine WBC (Auto) Urine RBC (Auto) Ur Squamous Epith Cells Urine Bacteria 05/06/17 05/06/17 07:50 07:50 WBC RBC Hgb Hct MCV MCH MCHC RDW Plt Count MPV Neut % (Auto) Lymph % (Auto) [place] % (Auto) Eos % (Auto) Baso % (Auto) Neut # Lymph # [place] # Eos # Baso # Sodium 134 Potassium 4.1 Chloride 101 Carbon Dioxide 24 Anion Gap 13 BUN 11 Creatinine 0.8 Est GFR ( Amer) > 60 Est GFR (Non-Af Amer) > 60 POC Glucose (mg/dL) Random Glucose 103 Calcium 8.3 L Phosphorus 3.1 Magnesium 1.9 Total Bilirubin AST ALT Alkaline Phosphatase Total Protein Albumin Globulin Albumin/Globulin Ratio Free T4 TSH 3rd Generation Cortisol AM Sample 13.9 Urine Color Urine Clarity Urine pH Ur Specific [place] Urine Protein Urine Glucose (UA) Urine Ketones Urine Blood Urine Nitrate Urine Bilirubin Urine Urobilinogen Ur Leukocyte Esterase Urine WBC (Auto) Urine RBC (Auto) Ur Squamous Epith Cells Urine Bacteria Assessment & Plan - Assessment and Plan (Free Text) Assessment: Hypothermia and low bp fluids culture adjust bp meds cortison and tsh level
[2017-05-06] MEDS: cefTRIAXone IV 1 gm in Dextros 50 ML IVPB SCH (14:02)
[2017-05-07 07:49] VITALS: BP 134/75; PULSE 66; TEMP 98.1; O2SAT 100
[2017-05-07] MEDS: Enoxaparin 40 mg Syringe SC SCH (09:38)
[2017-05-07] MEDS: Pantoprazole 40 mg EC Tab PO SCH (09:38)
[2017-05-07] MEDS: cefTRIAXone IV 1 gm in Dextros 50 ML IVPB SCH (09:39)
--- NOTE | 2017-05-07 10:52 | CP.PCM.DIS ---
Provider - Provider Date of Admission: 05/05/17 17:30 Attending physician: Sheryl Centeno MD Time Spent in preparation of Discharge (in minutes): 30 Diagnosis - Discharge Diagnosis (1) UTI (urinary tract infection) Status: Acute Hospital Course - Lab Results Lab Results: Micro Results 05/05/17 16:44 Urine Urine Culture - Final Escherichia Coli 05/05/17 16:00 Blood Blood Culture - Preliminary NO GROWTH AFTER 24 HOURS 05/05/17 15:30 Blood Blood Culture - Preliminary NO GROWTH AFTER 24 HOURS Most Recent Lab Values WBC 7.5 K/uL (4.8-10.8) 05/06/17 07:50 RBC 4.68 Mil/uL (3.80-5.20) 05/06/17 07:50 Hgb 12.8 g/dL (11.0-16.0) 05/06/17 07:50 Hct 39.3 % (34.0-47.0) 05/06/17 07:50 MCV 84.0 fL (81.0-99.0) 05/06/17 07:50 MCH 27.3 pg (27.0-31.0) 05/06/17 07:50 MCHC 32.5 g/dL (33.0-37.0) L 05/06/17 07:50 RDW 13.7 % (11.5-14.5) 05/06/17 07:50 Plt Count 168 K/uL (130-400) 05/06/17 07:50 MPV 11.2 fL (7.2-11.7) 05/06/17 07:50 Neut % (Auto) 61.4 % (50.0-75.0) 05/06/17 07:50 Lymph % (Auto) 28.5 % (20.0-40.0) 05/06/17 07:50 [place] % (Auto) 7.3 % (0.0-10.0) 05/06/17 07:50 Eos % (Auto) 1.5 % (0.0-4.0) 05/06/17 07:50 Baso % (Auto) 1.3 % (0.0-2.0) 05/06/17 07:50 Neut # 4.6 K/uL (1.8-7.0) 05/06/17 07:50 Lymph # 2.1 K/uL (1.0-4.3) 05/06/17 07:50 [place] # 0.5 K/uL (0.0-0.8) 05/06/17 07:50 Eos # 0.1 K/uL (0.0-0.7) 05/06/17 07:50 Baso # 0.1 K/uL (0.0-0.2) 05/06/17 07:50 Sodium 134 mmol/L (132-148) 05/06/17 07:50 Potassium 4.1 mmol/L (3.6-5.2) 05/06/17 07:50 Chloride 101 mmol/L (98-107) 05/06/17 07:50 Carbon Dioxide 24 mmol/L (22-30) 05/06/17 07:50 Anion Gap 13 (10-20) 05/06/17 07:50 BUN 11 mg/dL (7-17) 05/06/17 07:50 Creatinine 0.8 mg/dL (0.7-1.2) 05/06/17 07:50 Est GFR ( Amer) > 60 05/06/17 07:50 Est GFR (Non-Af Amer) > 60 05/06/17 07:50 POC Glucose (mg/dL) 121 mg/dL (65-110) H 05/05/17 16:14 Random Glucose 103 mg/dL (65-105) 05/06/17 07:50 Calcium 8.3 mg/dl (8.6-10.4) L 05/06/17 07:50 Phosphorus 3.1 mg/dL (2.5-4.5) 05/06/17 07:50 Magnesium 1.9 mg/dL (1.6-2.3) 05/06/17 07:50 Total Bilirubin 0.8 mg/dL (0.2-1.3) 05/05/17 16:57 AST 39 U/L (14-36) H 05/05/17 16:57 ALT 39 U/L (9-52) 05/05/17 16:57 Alkaline Phosphatase 115 U/L (38-126) 05/05/17 16:57 Total Protein 7.2 g/dL (6.3-8.3) 05/05/17 16:57 Albumin 3.7 g/dL (3.5-5.0) 05/05/17 16:57 Globulin 3.5 gm/dL (2.2-3.9) 05/05/17 16:57 Albumin/Globulin Ratio 1.0 (1.0-2.1) 05/05/17 16:57 Free T4 1.90 ng/dL (0.78-2.19) 05/05/17 17:39 TSH 3rd Generation 2.05 mIU/L (0.46-4.68) 05/05/17 17:39 Cortisol AM Sample 13.9 ug/dL (4.46-22.7) 05/06/17 07:50 Urine Color Yellow (YELLOW) 05/05/17 15:48 Urine Clarity Clear (Clear) 05/05/17 15:48 Urine pH 8.0 (5.0-8.0) 05/05/17 15:48 Ur Specific [place] 1.008 (1.003-1.030) 05/05/17 15:48 Urine Protein Negative mg/dL (NEGATIVE) 05/05/17 15:48 Urine Glucose (UA) 1+ mg/dL (Normal) 05/05/17 15:48 Urine Ketones Negative mg/dL (NEGATIVE) 05/05/17 15:48 Urine Blood Negative (NEGATIVE) 05/05/17 15:48 Urine Nitrate Negative (NEGATIVE) 05/05/17 15:48 Urine Bilirubin Negative (NEGATIVE) 05/05/17 15:48 Urine Urobilinogen Normal mg/dL (0.2-1.0) 05/05/17 15:48 Ur Leukocyte Esterase Neg Adam/uL (Negative) 05/05/17 15:48 Urine WBC (Auto) 4 /hpf (0-5) 05/05/17 15:48 Urine RBC (Auto) < 1 /hpf (0-3) 05/05/17 15:48 Ur Squamous Epith Cells 8 /hpf (0-5) H 05/05/17 15:48 Urine Bacteria Occ (<OCC) H 05/05/17 15:48 - Hospital Course Hospital Course: Pt was admited with hypothermia and low bp. She was hydrated, urine culture showed E coli infeciton. PT treated with iv anbx and switched to po cipro once cutures back.Her temperature remained normal while in observation. Discharge Exam - Eye Exam Eye Exam: Normal appearance - ENT Exam ENT Exam: Mucous Membranes Moist Discharge Plan - Discharge Medications Prescriptions: Ciprofloxacin [Cipro] 250 mg PO BID #20 tab Carvedilol [Coreg] 3.125 mg PO BID #60 tab Aspirin [Ecotrin] 81 mg PO DAILY #30 tabec - Follow Up Plan
[2017-05-07] MEDS ORDERED: Influenza Vaccine 60 mcg/0.5 mL SYR (4YR UP) IM ONE (11:25)
[2017-05-07] MEDS ORDERED: Pneumococcal 23-Valent Vaccine IM ONE (11:25)
[2017-05-08] MEDS ORDERED: Pneumococcal 23-Valent Vaccine IM ONE (10:00)
[2017-05-08] MEDS ORDERED: Influenza Vaccine 60 mcg/0.5 mL SYR (4YR UP) IM ONE (10:00)
== END 2017-05-07 13:40 | disposition home or self-care (01) ==
LOC: C.ER 15:05 → INTOOBSV 17:30 → C.9E 17:30 → C.3T 21:48
PROVIDERS: ADMIT Internal Medicine; ATTEND Internal Medicine
DX: N39.0 Urinary tract infection, site not specified (principal); I10 Essential (primary) hypertension; G30.9 Alzheimer's disease, unspecified; F02.80 Dementia in other diseases classified elsewhere, unspecified severity, without behavioral disturbance, psychotic disturbance, mood disturbance, and anxiety
CPT/HCPCS: 36415; 71010; 80048; 80053; 81001; 82533; 82948; 83735; 84100; 84439; 84443; 85025; 87040; 87086; 87181; 96360; 97116; 97162; 97165; 97530; 99285; G0378; G8978; G8979; G8987; G8988; G8989; J0696; J1650; J7040; J7042

== ENCOUNTER 2017-06-13 15:51 | Inpatient (IN) | payer MEDICARE ==
[2017-06-13 15:51] VITALS: BMI 24.3
[2017-06-13 17:15] LABS: VENOUS BLOOD GAS BASE EXCESS 1.2 mmol/L (0.0-2.0); VENOUS BLOOD GAS PCO2 50 mmHg (40-60); VENOUS BLOOD PH 7.35 (7.32-7.43)
[2017-06-13 17:22] LABS: BASO # 0.1 K/uL (0.0-0.2); BASO % 1.2 % (0.0-2.0); EOS # 0.1 K/uL (0.0-0.7); EOS % 0.9 % (0.0-4.0); HEMATOCRIT 38.8 % (34.0-47.0); LYMPH # 1.5 K/uL (1.0-4.3); LYMPH % 15.8 % (20.0-40.0); MEAN CELL VOLUME 84.3 fL (81.0-99.0); MEAN CORPUSCULAR HGB CONC 33.3 g/dL (33.0-37.0); MEAN PLATELET VOLUME 11.4 fL (7.2-11.7); MONO # 0.7 K/uL (0.0-0.8); MONO % 7.1 % (0.0-10.0); NRBC % 0.1 % (0.0-2.0); RED CELL DISTRIBUTION WIDTH 13.7 % (11.5-14.5); WHITE BLOOD COUNT 9.6 K/uL (4.8-10.8)
--- NOTE | 2017-06-13 17:22 | C.PDOC ---
History Of Present Illness Patient BIBA for evaluation of generalized weakness, lightheadedness for several hours. Patient has h/o prior hypothermia and sepsis due to UTI. She denies cough, fever, abdominal pain, vomiting/diarrhea, dysuria. Time Seen by Provider: 06/13/17 16:29 Chief Complaint (Nursing): Weakness/Neurological Deficit History Per: Patient, EMS, Family History/Exam Limitations: no limitations Onset/Duration Of Symptoms: Hrs Current Symptoms Are (Timing): Still Present Past Medical History Reviewed: Historical Data, Nursing Documentation, Vital Signs Vital Signs: Last Vital Signs Temp 95.8 F L 06/13/17 18:18 Pulse 75 06/13/17 17:28 Resp 18 06/13/17 17:28 BP 125/53 L 06/13/17 17:28 Pulse Ox 99 06/13/17 18:32 - Medical History PMH: Alzheimer's Disease, Dementia, Gastritis, HTN, Hypercholesterolemia Surgical History: Appendectomy Family History: States: No Known Family Hx - Social History Hx Tobacco Use: No Hx Alcohol Use: No Hx Substance Use: No - Immunization History Hx Tetanus Toxoid Vaccination: No Hx Influenza Vaccination: No Hx Pneumococcal Vaccination: No Review Of Systems Except As Marked, All Systems Reviewed And Found Negative. Constitutional: Positive for: Weakness. Negative for: Fever, Chills Cardiovascular: Negative for: Chest Pain, Palpitations Respiratory: Negative for: Cough, Shortness of Breath Gastrointestinal: Negative for: Nausea, Vomiting, Abdominal Pain, Diarrhea Genitourinary: Negative for: Dysuria, Hematuria Skin: Negative for: Rash Physical Exam - Physical Exam Appears: Well, Non-toxic, No Acute Distress Skin: Normal Color, Warm, Dry Oral Mucosa: Moist Cardiovascular: Rhythm Regular Respiratory: Normal Breath Sounds, No Rales, No Rhonchi, No Wheezing Gastrointestinal/Abdominal: Normal Exam, Bowel Sounds, Soft, No Tenderness Neurological/Psych: Oriented x3 ED Course And Treatment - Laboratory Results Result Diagrams: 06/13/17 17:08 06/13/17 17:08 O2 Sat by Pulse Oximetry: 99 (RA) Pulse Ox Interpretation: Normal - Radiology CXR: Interpreted by Me, Viewed By Me (cardiomegaly, no infiltrates/effusions) Progress Note: Blood work, CXR, EKG, UA ordered and reviewed. Patient given IV NS bolus, IV rocephin. - Physician Consult Information Physician Contacted: Sheryl Centeno Outcome Of Conversation: Discussed patient with Dr. Centeno, she agrees with admission for UTI, hypothermia. Disposition - Disposition Forms: [employer] (Guyanese)
[2017-06-13] MEDS ORDERED: Sodium Chloride 0.9% 500 ML IV ONE ×2 (17:24→18:38)
[2017-06-13 17:37] LABS: CALCIUM 7.6 mg/dl (8.6-10.4); GFR AFRICAN-AMERICAN > 60; GLUCOSE,RANDOM 109 mg/dL (65-105)
[2017-06-13 17:39] LABS: ALB/GLOB RATIO 1.2 (1.0-2.1); ALKALINE PHOSPHATASE 104 U/L (38-126); ALT/SGPT 25 U/L (9-52); AST/SGOT 34 U/L (14-36); BLOOD UREA NITROGEN 12 mg/dL (7-17); CARBON DIOXIDE 23 mmol/L (22-30); CHLORIDE 100 mmol/L (98-107); POTASSIUM 4.1 mmol/L (3.6-5.2); SODIUM 133 mmol/L (132-148); TOTAL PROTEIN 6.8 g/dL (6.3-8.3)
--- NOTE | 2017-06-13 18:28 | RAD ---
PROCEDURE: CHEST RADIOGRAPH, 1 VIEW HISTORY: hypothermia COMPARISON: Comparison chest dated 05/23/2017. FINDINGS: LUNGS: Persistent but improved mild bibasilar atelectasis. Questionable mild right apical pleural thickening PLEURA: As above. No evidence of pneumothorax. CARDIOVASCULAR: Cardiomegaly. Aorta is slightly ectatic and uncoiled. OSSEOUS STRUCTURES: Mild dextroscoliosis centered in the upper/ mid thoracic region. The the. VISUALIZED UPPER ABDOMEN: Normal. OTHER FINDINGS: None. IMPRESSION: Persistent but slightly improved bibasilar atelectasis. Cardiomegaly.
[2017-06-13 18:30] LABS: RBC URINE 1 /hpf (0-3); URINE BACTERIA RARE (<OCC); URINE BILIRUBIN NEGATIVE (NEGATIVE); URINE BLOOD NEGATIVE (NEGATIVE); URINE COLOR Yellow (YELLOW); URINE GLUCOSE (UA) NORMAL (Normal); URINE KETONE NEGATIVE (NEGATIVE); URINE LEUKOCYTE ESTERASE NEG Leu/uL (Negative); URINE PROTEIN NEGATIVE (NEGATIVE); WBC URINE 3 /hpf (0-5)
[2017-06-13] MEDS ORDERED: cefTRIAXone IV 1 gm in Dextros 50 ML IVPB ONE (18:46)
[2017-06-13] MEDS ORDERED: Sodium Chloride 0.45% 1,000 ML IV ONE (18:46)
[2017-06-13 20:46] VITALS: RESP 20
[2017-06-14] MEDS ORDERED: Pantoprazole 40 mg EC Tab PO SCH (10:00)
[2017-06-14] MEDS ORDERED: Influenza Vaccine 60 mcg/0.5 mL SYR (4YR UP) IM ONE (10:00)
[2017-06-14] MEDS ORDERED: Pneumococcal 23-Valent Vaccine IM ONE (10:00)
--- NOTE | 2017-06-14 16:35 | CP.PCM.HP ---
History of Present Illness - History of Present Illness History of Present Illness: CC> Not feeling well HPI; pt was brought to the hospital by the family complainig of feeling weak. This has happned in the past and pt was found to be hypothermic and have a UTI. Pt on presentation to the ER had a temp of 94. warm blanket was applied and pt had blood and urine and diagnosed with a UTi. Pt was admitted for treatment. Pt had negative work up for hypothyrodism in previous admissions. 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 absent: Daytime Sleepiness, Night Sweats - EENT Eyes: absent: Blurred Vision Nose/Mouth/Throat: absent: Dry Mouth - Cardiovascular Cardiovascular: absent: Chest Pain, Dyspnea on Exertion - Respiratory Respiratory: absent: Cough, Dyspnea - Gastrointestinal Gastrointestinal: absent: Abdominal Pain, Diarrhea, Excessive Flatus Past Patient History - Infectious Disease Hx of Infectious Diseases: None - Tetanus Immunizations Tetanus Immunization: Unknown - Past Medical History & Family History Past Medical History?: Yes - Past Social History Smoking Status: Unknown If Ever Smoked - CARDIAC Hx Hypercholesterolemia: Yes Hx Hypertension: Yes - PULMONARY Hx Respiratory Disorders: No - NEUROLOGICAL Hx Alzheimer's Disease: Yes Hx Dementia: Yes - HEENT Hx HEENT Problems: No - RENAL Hx Chronic Kidney Disease: No - ENDOCRINE/METABOLIC Hx Endocrine Disorders: No - HEMATOLOGICAL/ONCOLOGICAL Hx Blood Disorders: Yes Hx Hepatitis C: Yes - INTEGUMENTARY Hx Dermatological Problems: No - MUSCULOSKELETAL/RHEUMATOLOGICAL Hx Falls: No - GASTROINTESTINAL Hx Gastritis: Yes - GENITOURINARY/GYNECOLOGICAL Hx Genitourinary Disorders: No - PSYCHIATRIC Hx Substance Use: No - SURGICAL HISTORY Hx Appendectomy: Yes - ANESTHESIA Hx Anesthesia: Yes Hx Anesthesia Reactions: No Hx Malignant Hyperthermia: No Meds Allergies/Adverse Reactions: Allergies Allergy/AdvReac Type Severity Reaction Status Date / Time benazepril AdvReac ANGIOEDEMA Verified 05/23/17 01:23 EDT Physical Exam - Constitutional Appears: Non-toxic - Eye Exam Eye Exam: EOMI, Normal appearance, Periorbital swelling - ENT Exam ENT Exam: Mucous Membranes Moist - Respiratory Exam Respiratory Exam: NORMAL BREATHING PATTERN. absent: Accessory Muscle Use, Wheezes - Cardiovascular Exam Cardiovascular Exam: REGULAR RHYTHM, RRR, +S1, +S2. absent: JVD - GI/Abdominal Exam GI & Abdominal Exam: Normal Bowel Sounds. absent: Organomegaly - Extremities Exam Extremities exam: Positive for: normal inspection. Negative for: calf tenderness - Neurological Exam Neurological exam: Normal Gait - Skin Skin Exam: Normal Color, Warm Results - Vital Signs Recent Vital Signs: Last Vital Signs Temp 97.5 F L 06/14/17 08:32 Pulse 67 06/14/17 08:32 Resp 20 06/14/17 08:32 BP 114/69 06/14/17 08:32 Pulse Ox 96 06/14/17 08:32 - Labs Result Diagrams: 06/13/17 17:08 06/13/17 17:08 Labs: Laboratory Results - last 24 hr 06/13/17 06/13/17 06/13/17 17:08 17:08 17:11 WBC 9.6 RBC 4.61 Hgb 12.9 Hct 38.8 MCV 84.3 MCH 28.0 MCHC 33.3 RDW 13.7 Plt Count 180 MPV 11.4 Neut % (Auto) 75.0 Lymph % (Auto) 15.8 L [place] % (Auto) 7.1 Eos % (Auto) 0.9 Baso % (Auto) 1.2 Neut # 7.2 H Lymph # 1.5 [place] # 0.7 Eos # 0.1 Baso # 0.1 pO2 31 VBG pH 7.35 VBG pCO2 50 VBG HCO3 24.7 VBG Total CO2 29.1 H VBG O2 Sat (Calc) 66.1 H VBG Base Excess 1.2 VBG Potassium 3.3 L Glucose 120 H Lactate 4.0 H* Sodium 133 140.0 Potassium 4.1 Chloride 100 107.0 Carbon Dioxide 23 Anion Gap 14 BUN 12 Creatinine 0.7 Est GFR ( Amer) > 60 Est GFR (Non-Af Amer) > 60 Random Glucose 109 H Calcium 7.6 L Total Bilirubin 1.0 AST 34 ALT 25 Alkaline Phosphatase 104 Total Protein 6.8 Albumin 3.7 Globulin 3.1 Albumin/Globulin Ratio 1.2 Venous Blood Potassium 3.3 L Urine Color Urine Clarity Urine pH Ur Specific [place] Urine Protein Urine Glucose (UA) Urine Ketones Urine Blood Urine Nitrate Urine Bilirubin Urine Urobilinogen Ur Leukocyte Esterase Urine WBC (Auto) Urine RBC (Auto) Ur Squamous Epith Cells Urine Bacteria 06/13/17 18:14 WBC RBC Hgb Hct MCV MCH MCHC RDW Plt Count MPV Neut % (Auto) Lymph % (Auto) [place] % (Auto) Eos % (Auto) Baso % (Auto) Neut # Lymph # [place] # Eos # Baso # pO2 VBG pH VBG pCO2 VBG HCO3 VBG Total CO2 VBG O2 Sat (Calc) VBG Base Excess VBG Potassium Glucose Lactate Sodium Potassium Chloride Carbon Dioxide Anion Gap BUN Creatinine Est GFR ( Amer) Est GFR (Non-Af Amer) Random Glucose Calcium Total Bilirubin AST ALT Alkaline Phosphatase Total Protein Albumin Globulin Albumin/Globulin Ratio Venous Blood Potassium Urine Color Yellow Urine Clarity Clear Urine pH 6.0 Ur Specific [place] 1.010 Urine Protein Negative Urine Glucose (UA) Normal Urine Ketones Negative Urine Blood Negative Urine Nitrate Positive H Urine Bilirubin Negative Urine Urobilinogen 2.0 H Ur Leukocyte Esterase Neg Urine WBC (Auto) 3 Urine RBC (Auto) 1 Ur Squamous Epith Cells 5 Urine Bacteria Rare Assessment & Plan - Assessment and Plan (Free Text) Assessment: Pt was given fluids and warm blanket in ER. admit cont jose warm blanket uti; treat bp stable cont meds alzeimiers stable
[2017-06-14 16:41] VITALS: BP 135/80; PULSE 75; TEMP 97.7; O2SAT 99
--- NOTE | 2017-06-14 17:54 | CARD ---
APPROVED REPORT EKG Measurement Heart [id number] <Conclusion> Normal sinus rhythm Normal ECG
--- NOTE | 2017-06-14 17:55 | CP.PCM.DIS ---
Provider - Provider Date of Admission: 06/13/17 18:37 Attending physician: Sheryl Centeno MD Time Spent in preparation of Discharge (in minutes): 30 Hospital Course - Lab Results Lab Results: Micro Results 06/13/17 16:40 Urine Urine Culture - Preliminary Gram Negative [place] Most Recent Lab Values WBC 9.6 K/uL (4.8-10.8) 06/13/17 17:08 RBC 4.61 Mil/uL (3.80-5.20) 06/13/17 17:08 Hgb 12.9 g/dL (11.0-16.0) 06/13/17 17:08 Hct 38.8 % (34.0-47.0) 06/13/17 17:08 MCV 84.3 fL (81.0-99.0) 06/13/17 17:08 MCH 28.0 pg (27.0-31.0) 06/13/17 17:08 MCHC 33.3 g/dL (33.0-37.0) 06/13/17 17:08 RDW 13.7 % (11.5-14.5) 06/13/17 17:08 Plt Count 180 K/uL (130-400) 06/13/17 17:08 MPV 11.4 fL (7.2-11.7) 06/13/17 17:08 Neut % (Auto) 75.0 % (50.0-75.0) 06/13/17 17:08 Lymph % (Auto) 15.8 % (20.0-40.0) L 06/13/17 17:08 [place] % (Auto) 7.1 % (0.0-10.0) 06/13/17 17:08 Eos % (Auto) 0.9 % (0.0-4.0) 06/13/17 17:08 Baso % (Auto) 1.2 % (0.0-2.0) 06/13/17 17:08 Neut # 7.2 K/uL (1.8-7.0) H 06/13/17 17:08 Lymph # 1.5 K/uL (1.0-4.3) 06/13/17 17:08 [place] # 0.7 K/uL (0.0-0.8) 06/13/17 17:08 Eos # 0.1 K/uL (0.0-0.7) 06/13/17 17:08 Baso # 0.1 K/uL (0.0-0.2) 06/13/17 17:08 pO2 31 mm/Hg (30-55) 06/13/17 17:11 VBG pH 7.35 (7.32-7.43) 06/13/17 17:11 VBG pCO2 50 mmHg (40-60) 06/13/17 17:11 VBG HCO3 24.7 mmol/L 06/13/17 17:11 VBG Total CO2 29.1 mmol/L (22-28) H 06/13/17 17:11 VBG O2 Sat (Calc) 66.1 % (40-65) H 06/13/17 17:11 VBG Base Excess 1.2 mmol/L (0.0-2.0) 06/13/17 17:11 VBG Potassium 3.3 mmol/L (3.6-5.2) L 06/13/17 17:11 Sodium 140.0 mmol/l (132-148) 06/13/17 17:11 Chloride 107.0 mmol/L (98-107) 06/13/17 17:11 Glucose 120 mg/dl (65-105) H 06/13/17 17:11 Lactate 4.0 mmol/L (0.7-2.1) H* 06/13/17 17:11 Sodium 133 mmol/L (132-148) 06/13/17 17:08 Potassium 4.1 mmol/L (3.6-5.2) 06/13/17 17:08 Chloride 100 mmol/L (98-107) 06/13/17 17:08 Carbon Dioxide 23 mmol/L (22-30) 06/13/17 17:08 Anion Gap 14 (10-20) 06/13/17 17:08 BUN 12 mg/dL (7-17) 06/13/17 17:08 Creatinine 0.7 mg/dL (0.7-1.2) 06/13/17 17:08 Est GFR ( Amer) > 60 06/13/17 17:08 Est GFR (Non-Af Amer) > 60 06/13/17 17:08 Random Glucose 109 mg/dL (65-105) H 06/13/17 17:08 Calcium 7.6 mg/dl (8.6-10.4) L 06/13/17 17:08 Total Bilirubin 1.0 mg/dL (0.2-1.3) 06/13/17 17:08 AST 34 U/L (14-36) 06/13/17 17:08 ALT 25 U/L (9-52) 06/13/17 17:08 Alkaline Phosphatase 104 U/L (38-126) 06/13/17 17:08 Total Protein 6.8 g/dL (6.3-8.3) 06/13/17 17:08 Albumin 3.7 g/dL (3.5-5.0) 06/13/17 17:08 Globulin 3.1 gm/dL (2.2-3.9) 06/13/17 17:08 Albumin/Globulin Ratio 1.2 (1.0-2.1) 06/13/17 17:08 Venous Blood Potassium 3.3 mmol/L (3.6-5.2) L 06/13/17 17:11 Urine Color Yellow (YELLOW) 06/13/17 18:14 Urine Clarity Clear (Clear) 06/13/17 18:14 Urine pH 6.0 (5.0-8.0) 06/13/17 18:14 Ur Specific [place] 1.010 (1.003-1.030) 06/13/17 18:14 Urine Protein Negative mg/dL (NEGATIVE) 06/13/17 18:14 Urine Glucose (UA) Normal mg/dL (Normal) 06/13/17 18:14 Urine Ketones Negative mg/dL (NEGATIVE) 06/13/17 18:14 Urine Blood Negative (NEGATIVE) 06/13/17 18:14 Urine Nitrate Positive (NEGATIVE) H 06/13/17 18:14 Urine Bilirubin Negative (NEGATIVE) 06/13/17 18:14 Urine Urobilinogen 2.0 mg/dL (0.2-1.0) H 06/13/17 18:14 Ur Leukocyte Esterase Neg Adam/uL (Negative) 06/13/17 18:14 Urine WBC (Auto) 3 /hpf (0-5) 06/13/17 18:14 Urine RBC (Auto) 1 /hpf (0-3) 06/13/17 18:14 Ur Squamous Epith Cells 5 /hpf (0-5) 06/13/17 18:14 Urine Bacteria Rare (<OCC) 06/13/17 18:14 - Hospital Course Hospital Course: Pt was admitted for hypothermia fluids given uti found treated sent home normal temp follow up with me Discharge Plan - Follow Up Plan Condition: GOOD Disposition: HOME/ ROUTINE
[2017-06-14] MEDS ORDERED: cefTRIAXone IV 1 gm in Dextros 1 GM in Dextrose 5% In Water 50 ML IVPB SCH (19:00)
== END 2017-06-14 18:35 | disposition home or self-care (01) | DRG 690 ==
LOC: C.ER 15:51 → C.9E 18:37 → C.3T 20:36
PROVIDERS: ADMIT Internal Medicine; ATTEND Internal Medicine
DX: N39.0 Urinary tract infection, site not specified (principal); F02.81 Dementia in other diseases classified elsewhere, unspecified severity, with behavioral disturbance; G30.9 Alzheimer's disease, unspecified; E78.00 Pure hypercholesterolemia, unspecified; I10 Essential (primary) hypertension; R73.03 Prediabetes; R53.1 Weakness; R68.0 Hypothermia, not associated with low environmental temperature

== ENCOUNTER 2017-12-17 09:58 | Observation (INO) | payer MEDICARE ==
[2017-12-17 10:05] VITALS: BMI 20.1
[2017-12-17 11:11] LABS: BASO # 0.1 K/uL (0.0-0.2); BASO % 0.7 % (0.0-2.0); EOS # 0.1 K/uL (0.0-0.7); EOS % 1.4 % (0.0-4.0); HEMOGLOBIN 11.9 g/dL (11.0-16.0); LYMPH # 1.3 K/uL (1.0-4.3); LYMPH % 14.5 % (20.0-40.0); MEAN CELL VOLUME 84.1 fL (81.0-99.0); MEAN CORPUSCULAR HGB CONC 33.3 g/dL (33.0-37.0); MEAN PLATELET VOLUME 10.7 fL (7.2-11.7); MONO # 0.5 K/uL (0.0-0.8); MONO % 5.1 % (0.0-10.0); NEUT # 7.1 K/uL (1.8-7.0); NEUT % 78.3 % (50.0-75.0); RBC 4.27 Mil/uL (3.80-5.20); RED CELL DISTRIBUTION WIDTH 12.7 % (11.5-14.5); WHITE BLOOD COUNT 9.1 K/uL (4.8-10.8)
--- NOTE | 2017-12-17 11:37 | RAD ---
PROCEDURE: CHEST RADIOGRAPH, 1 VIEW HISTORY: SOB x 1 week COMPARISON: 11/26/2017. FINDINGS: LUNGS: The lungs are well inflated. There is a left retrocardiac opacity. There is right basilar atelectasis. PLEURA: No pneumothorax. There is blunting of the left costophrenic angle. CARDIOVASCULAR: Normal. OSSEOUS STRUCTURES: No significant abnormalities. VISUALIZED UPPER ABDOMEN: Normal. OTHER FINDINGS: None. IMPRESSION: Findings may represent left lower lobe pneumonia and/ left pleural effusion. Follow-up is advised.
[2017-12-17 12:05] LABS: ALB/GLOB RATIO 0.9 (1.0-2.1); ALBUMIN 3.3 g/dL (3.5-5.0); AST/SGOT 26 U/L (14-36); BLOOD UREA NITROGEN 8 mg/dL (7-17); CALCIUM 8.8 mg/dl (8.6-10.4); GFR AFRICAN-AMERICAN > 60; GFR NON-AFRICAN AMERICAN > 60
[2017-12-17 12:13] LABS: ALT/SGPT < 6 U/L (9-52)
[2017-12-17 12:16] LABS: B-TYPE NATRIURETIC PEPTIDE 166 pg/mL (0-900); CK-MB 0.31 ng/mL (0.0-3.38)
--- NOTE | 2017-12-17 12:38 | C.PDOC ---
History Of Present Illness 82-year-old female, presents to the emergency department accompanied by family, for evaluation of shortness of breath, that started one week ago. Patient reports associated dyspnea on exertion, but denies any chest pain, patient has not experienced these symptoms in the past. Family denies a Hx of diabetes. No leg swelling, nausea/vomiting, fever, numbness/weakness, arm pain or any other associated symptoms. No other complaints at this time. Time Seen by Provider: 12/17/17 10:18 Chief Complaint (Nursing): Shortness Of Breath History Per: Patient History/Exam Limitations: no limitations Current Symptoms Are (Timing): Still Present Past Medical History Reviewed: Historical Data, Nursing Documentation, Vital Signs Vital Signs: Last Vital Signs Temp 97.7 F 12/17/17 10:05 Pulse 68 12/17/17 11:24 Resp 18 12/17/17 11:24 BP 128/65 12/17/17 11:24 Pulse Ox 96 12/17/17 12:41 - Medical History PMH: Alzheimer's Disease, Dementia, Gastritis, HTN, Hypercholesterolemia Surgical History: Appendectomy Family History: States: No Known Family Hx - Social History Hx Tobacco Use: No Hx Alcohol Use: No Hx Substance Use: No - Immunization History Hx Tetanus Toxoid Vaccination: No Hx Influenza Vaccination: No Hx Pneumococcal Vaccination: No Review Of Systems Constitutional: Negative for: Fever, Chills Cardiovascular: Negative for: Chest Pain Respiratory: Positive for: Shortness of Breath, SOB with Excertion. Negative for: Cough, Hemoptysis, Wheezing Gastrointestinal: Negative for: Nausea, Vomiting Musculoskeletal: Negative for: Neck Pain, Arm Pain, Back Pain Neurological: Negative for: Weakness, Numbness, Headache, Dizziness Physical Exam - Physical Exam Appears: Non-toxic, No Acute Distress Skin: Normal Color, Warm, Dry, No Rash Head: Atraumatic, Normacephalic Eye(s): bilateral: Normal Inspection, PERRL Nose: Normal Oral Mucosa: Moist Lips: Normal Appearing Neck: Normal ROM Chest: Symmetrical Cardiovascular: Rhythm Regular, No Murmur Respiratory: Normal Breath Sounds, No Accessory Muscle Use, No Rales, No Rhonchi , No Wheezing Gastrointestinal/Abdominal: Soft, No Tenderness, No Guarding, No Rebound Extremity: Normal ROM, No Deformity, No Swelling Neurological/Psych: Oriented x3, Normal Speech ED Course And Treatment - Laboratory Results Result Diagrams: 12/17/17 11:00 12/17/17 11:00 O2 Sat by Pulse Oximetry: 96 (RA) Pulse Ox Interpretation: Normal - Other Rad CXR X-Ray: Viewed By Me, Read By Radiologist Interpretation: Accession No. : [id number]. Patient Name / ID : GRETA WEIR / [id number]. Exam Date : 12/17/2017 10:54:13 ( Approved ). Study Comment : Sex / Age : F / 82Y. Creator : Santa Lacy MD. Dictator : Santa Lacy MD. Delivery Truck Driver : Saute Chef : Santa Lacy MD. Approver2 : Report Date : 12/17/2017 11:35:31. My Comment : . PROCEDURE: CHEST RADIOGRAPH, 1 VIEW. HISTORY: SOB x 1 week. COMPARISON: 05/2018. FINDINGS: LUNGS: The lungs are well inflated. There is a left retrocardiac opacity. There is right basilar atelectasis. PLEURA: No pneumothorax. There is blunting of the left costophrenic angle. CARDIOVASCULAR : Normal. OSSEOUS STRUCTURES: No significant abnormalities. VISUALIZED UPPER ABDOMEN: Normal. OTHER FINDINGS: None. IMPRESSION: Findings may represent left lower lobe pneumonia and/ left pleural effusion. Follow-up is advised. Medical Decision Making Medical Decision Making: Impression Shortness of breath, dyspnea on exertion Plan: * EKG * Bloodwork * Chest X-Ray * fingersick * UA * Reassess and Disposition Case discussed with Dr Centeno, agrees with plan and states she will admit patient under her service. Disposition - Disposition Forms: [employer] (Polish) - Scribe Statement The provider has reviewed the documentation as recorded by the Scribe (Mechelle Vega) All medical record entries made by the Scribe were at my direction and personally dictated by me. I have reviewed the chart and agree that the record accurately reflects my personal performance of the history, physical exam, medical decision making, and the department course for this patient. I have also personally directed, reviewed, and agree with the discharge instructions and disposition.
[2017-12-17] MEDS ORDERED: Azithromycin 500 MG in Sodium Chloride 0.9% 250 ML IVPB STA (12:41)
[2017-12-17] MEDS ORDERED: cefTRIAXone IV 1 gm in Dextros 50 ML IVPB ONE (12:43)
[2017-12-17] MEDS ORDERED: Azithromycin 500mg/250ML NS 500 MG/250 ML BAG IVPB SCH (12:45)
[2017-12-17 14:04] LABS: CK-MB < 0.22 ng/mL (0.0-3.38)
[2017-12-17 14:10] LABS: SQUAMOUS EPITHIAL 3 /hpf (0-5); URINE BACTERIA RARE (<OCC); URINE BILIRUBIN NEGATIVE (NEGATIVE); URINE BLOOD NEGATIVE (NEGATIVE); URINE CLARITY Clear (Clear); URINE COLOR Yellow (YELLOW); URINE GLUCOSE (UA) 3+ mg/dL (Normal); URINE LEUKOCYTE ESTERASE NEG Leu/uL (Negative); URINE PROTEIN NEGATIVE (NEGATIVE)
[2017-12-17 15:04] LABS: INR 1.2; PROTHROMBIN TIME 13.4 SECONDS (9.7-12.2)
--- NOTE | 2017-12-17 16:40 | CP.PCM.HP ---
History of Present Illness - History of Present Illness History of Present Illness: Pt was brought to the ER by family with co sob for one week. In the ER patient was evaluated and found to have what looks like an infiltrate. She is being admitted under observation for cardiac enzymes and treatment of possible pneumonia. Pt's daughter she was seen in the ER 2-3 weeks ago with uri and treated with zpack. She was better , but over the last one week, was noted to be sob. Pt states GUZMAN. No chest pain, but repors feeling tired. Admits to coughing up sptutum Medical Hx: Cerebral infarction Deangelo Induced Angioedema Hypertension Achalasia of cardia Pre-diabetes Dementia Family Hx: Mother-breast cancer Allergies: Deangelo inhibitor Social Hx: Neg. Smoke Neg. ETOH Neg. Drugs Surgical Hx: large bowel surgery for mass Medications: Clopidogrel 75mg qd Risperidone 0.25mg qd Aricept 5mg qd Amlodipine 10mg qd Vitamin B qd Stovite qd Carvedilol 3.125mg bid Present on Admission - Present on Admission Any Indicators Present on Admission: No Review of Systems - Constitutional Constitutional: absent: Chills - EENT Nose/Mouth/Throat: absent: Epistaxis, Dry Mouth - Cardiovascular Cardiovascular: Dyspnea on Exertion. absent: Chest Pain - Respiratory Respiratory: Cough. absent: Hemoptysis, Wheezing - Gastrointestinal Gastrointestinal: absent: Abdominal Pain - Genitourinary Genitourinary: absent: Change in Urinary Stream - Psychiatric Psychiatric: absent: Behavioral Changes Past Patient History - Infectious Disease Hx of Infectious Diseases: None - Tetanus Immunizations Tetanus Immunization: Unknown - Past Medical History & Family History Past Medical History?: Yes - Past Social History Smoking Status: Unknown If Ever Smoked - CARDIAC Hx Hypercholesterolemia: Yes Hx Hypertension: Yes - PULMONARY Hx Respiratory Disorders: No - NEUROLOGICAL Hx Alzheimer's Disease: Yes Hx Dementia: Yes - HEENT Hx HEENT Problems: No - RENAL Hx Chronic Kidney Disease: No - ENDOCRINE/METABOLIC Hx Endocrine Disorders: No - HEMATOLOGICAL/ONCOLOGICAL Hx Blood Disorders: Yes Hx Hepatitis C: Yes - INTEGUMENTARY Hx Dermatological Problems: No - MUSCULOSKELETAL/RHEUMATOLOGICAL Hx Falls: No - GASTROINTESTINAL Hx Gastritis: Yes - GENITOURINARY/GYNECOLOGICAL Hx Genitourinary Disorders: No - PSYCHIATRIC Hx Substance Use: No - SURGICAL HISTORY Hx Appendectomy: Yes - ANESTHESIA Hx Anesthesia: Yes Hx Anesthesia Reactions: No Hx Malignant Hyperthermia: No Meds Allergies/Adverse Reactions: Allergies Allergy/AdvReac Type Severity Reaction Status Date / Time benazepril AdvReac ANGIOEDEMA Verified 12/17/17 10:03 Physical Exam - Eye Exam Eye Exam: Normal appearance - ENT Exam ENT Exam: Mucous Membranes Moist - Respiratory Exam Respiratory Exam: absent: Chest Wall Tenderness, Prolonged Expiratory Phase Additional comments: some right base fine crackles - Cardiovascular Exam Cardiovascular Exam: REGULAR RHYTHM, RRR, +S1, +S2. absent: JVD - GI/Abdominal Exam GI & Abdominal Exam: Normal Bowel Sounds, Soft. absent: Tenderness Results - Vital Signs Recent Vital Signs: Last Vital Signs Temp 98.3 F 12/17/17 16:12 Pulse 64 12/17/17 16:12 Resp 20 12/17/17 16:12 BP 112/49 L 12/17/17 16:12 Pulse Ox 95 12/17/17 16:12 - Labs Result Diagrams: 12/17/17 11:00 12/17/17 11:00 Labs: Laboratory Results - last 24 hr 12/17/17 12/17/17 12/17/17 10:14 11:00 11:00 WBC 9.1 RBC 4.27 Hgb 11.9 Hct 35.9 MCV 84.1 MCH 28.0 MCHC 33.3 RDW 12.7 Plt Count 220 MPV 10.7 Neut % (Auto) 78.3 H Lymph % (Auto) 14.5 L [place] % (Auto) 5.1 Eos % (Auto) 1.4 Baso % (Auto) 0.7 Neut # (Auto) 7.1 H Lymph # (Auto) 1.3 Walker # (Auto) 0.5 Eos # (Auto) 0.1 Baso # (Auto) 0.1 PT INR APTT Sodium 141 Potassium 3.8 Chloride 102 Carbon Dioxide 25 Anion Gap 18 BUN 8 Creatinine 0.8 Est GFR ( Amer) > 60 Est GFR (Non-Af Amer) > 60 POC Glucose (mg/dL) 287 H Random Glucose 269 H Calcium 8.8 Total Bilirubin 0.6 AST 26 ALT < 6 L D Alkaline Phosphatase 81 Total Creatine Kinase 40 CK-MB (Mass) 0.31 Troponin I < 0.0120 NT-Pro-B Natriuret Pep 166 Total Protein 7.1 Albumin 3.3 L Globulin 3.8 Albumin/Globulin Ratio 0.9 L Urine Color Urine Clarity Urine pH Ur Specific [place] Urine Protein Urine Glucose (UA) Urine Ketones Urine Blood Urine Nitrate Urine Bilirubin Urine Urobilinogen Ur Leukocyte Esterase Urine WBC (Auto) Urine RBC (Auto) Ur Squamous Epith Cells Urine Bacteria 12/17/17 12/17/17 12/17/17 13:20 14:04 14:53 WBC RBC Hgb Hct MCV MCH MCHC RDW Plt Count MPV Neut % (Auto) Lymph % (Auto) [place] % (Auto) Eos % (Auto) Baso % (Auto) Neut # (Auto) Lymph # (Auto) [place] # (Auto) Eos # (Auto) Baso # (Auto) PT 13.4 H INR 1.2 APTT 30 Sodium Potassium Chloride Carbon Dioxide Anion Gap BUN Creatinine Est GFR ( Amer) Est GFR (Non-Af Amer) POC Glucose (mg/dL) Random Glucose Calcium Total Bilirubin AST ALT Alkaline Phosphatase Total Creatine Kinase 102 CK-MB (Mass) < 0.22 Troponin I 0.0230 NT-Pro-B Natriuret Pep Total Protein Albumin Globulin Albumin/Globulin Ratio Urine Color Yellow Urine Clarity Clear Urine pH 7.0 Ur Specific [place] 1.009 Urine Protein Negative Urine Glucose (UA) 3+ H Urine Ketones Negative Urine Blood Negative Urine Nitrate Negative Urine Bilirubin Negative Urine Urobilinogen 2.0 H Ur Leukocyte Esterase Neg Urine WBC (Auto) 1 Urine RBC (Auto) < 1 Ur Squamous Epith Cells 3 Urine Bacteria Rare Assessment & Plan - Assessment and Plan (Free Text) Assessment: Pnemonia complicated by pleural effusion sats are good admit abx echo Given risk factors will check cardiac enzymes diabets metformin monitor
[2017-12-17] MEDS ORDERED: Potassium Chloride 20 mEq/15 ml LIQ UD PO ONE (19:30)
[2017-12-18 05:03] LABS: CK-MB 0.35 ng/mL (0.0-3.38)
[2017-12-18 07:03] LABS: BLOOD UREA NITROGEN 7 mg/dL (7-17); CALCIUM 8.6 mg/dl (8.6-10.4); GFR AFRICAN-AMERICAN > 60; GFR NON-AFRICAN AMERICAN > 60
[2017-12-18] MEDS ORDERED: Pantoprazole 20 mg EC Tab PO SCH (10:00)
[2017-12-18] MEDS: Azithromycin 500 MG in Sodium Chloride 0.9% 250 ML IVPB SCH (12:40)
[2017-12-18] MEDS ORDERED: Potassium Chloride 20 mEq ER Tab PO SCH (14:45)
--- NOTE | 2017-12-18 15:03 | CP.PCM.PN ---
Subjective - Date & Time of Evaluation Date of Evaluation: 12/18/17 Time of Evaluation: 15:03 - Subjective Subjective: PT states she is better, but no much walking around denies sob Objective - Vital Signs/Intake and Output Vital Signs (last 24 hours): Temp Pulse Resp BP Pulse Ox 97.9 F 70 20 143/74 97 12/18/17 07:10 12/18/17 07:40 12/18/17 07:10 12/18/17 07:10 12/18/17 07:10 - Medications Medications: Current Medications Carvedilol (Coreg) 3.125 mg PO BID [facility] Last Admin: 12/18/17 09:41 Dose: 3.125 mg Clopidogrel Bisulfate (Plavix) 75 mg PO DAILY [facility] Last Admin: 12/18/17 09:41 Dose: 75 mg Famotidine (Pepcid) 20 mg PO DAILY [facility] Last Admin: 12/18/17 09:41 Dose: 20 mg Heparin Sodium (Porcine) (Heparin) 5,000 units SC Q8 [facility] Last Admin: 12/18/17 14:20 Dose: 5,000 units Azithromycin 500 mg/ Sodium (Chloride) 250 mls @ 167 mls/hr IVPB Q24H [facility] PRN Reason: Protocol Last Admin: 12/18/17 12:40 Dose: 167 mls/hr Ceftriaxone Sodium 1 gm/ (Sodium Chloride) 100 mls @ 100 mls/hr IVPB Q24H [facility] PRN Reason: Protocol Last Admin: 12/18/17 12:37 Dose: 100 mls/hr Metformin HCl (Glucophage) 500 mg PO BID [facility] Last Admin: 12/18/17 09:41 Dose: 500 mg - Labs Labs: 12/17/17 11:00 12/18/17 06:36 PT 13.4 SECONDS (9.7-12.2) H 12/17/17 14:53 INR 1.2 12/17/17 14:53 APTT 30 SECONDS (21-34) 12/17/17 14:53 - Constitutional Appears: Well - Eye Exam Eye Exam: Normal appearance - ENT Exam ENT Exam: Mucous Membranes Moist - Respiratory Exam Respiratory Exam: absent: Chest Wall Tenderness, Rales, Wheezes, Respiratory Distress - GI/Abdominal Exam GI & Abdominal Exam: Soft, Normal Bowel Sounds - Extremities Exam Extremities Exam: absent: Pedal Edema Assessment and Plan - Assessment and Plan (Free Text) Assessment: Pnemonia and pleral eff cont meds not sure degree of GUZMAN reported by patient is all due to pnemonia echo done ekg ; old AL negative ROMIs will ask cardio to eval ct of chest to follw up on pleural eff Replaced K
--- NOTE | 2017-12-18 21:31 | CT ---
EXAM: CT Chest Without Intravenous Contrast EXAM DATE/TIME: 12/18/2017 2:57 PM CLINICAL HISTORY: 82 years old, female; Signs and symptoms and condition or disease; Other: Pleural effusion; Shortness of breath; Additional info: SOB, pleural effusion TECHNIQUE: Axial computed tomography images of the chest without intravenous contrast. All CT scans at this facility use one or more dose reduction techniques, viz.: automated exposure control; ma/kV adjustment per patient size (including targeted exams where dose is matched to indication; i.e. head); or iterative reconstruction technique. Coronal and sagittal reformatted images were created and reviewed. COMPARISON: No relevant prior studies available. FINDINGS: LUNGS: Findings highly suspicious for a multifocal, scattered, bilateral pneumonia. There are scattered areas of consolidation in the lungs bilaterally, greatest in the lung bases, and relatively sparing the left upper lobe. No evidence of diffuse pulmonary vascular congestion. No evidence of diffuse pulmonary vascular congestion. PLEURAL SPACE: Small left pleural effusion. No pneumothorax is seen. HEART: Heart appears mildly enlarged. Tiny pericardial effusion. MEDIASTINUM: Diffuse esophageal dilatation. The esophagus is diffusely dilated, and contains fluid and air throughout its lumen. Its wall appears mildly thickened. There is no large, obstructing mass visualized by CT. BONES/JOINTS: Multiple chronic-appearing vertebral compression fractures. Bony structures appear demineralized. SOFT TISSUES: No acute abnormality of the visualized soft tissues is seen. VASCULATURE: Exam is nondiagnostic for aortic dissection and pulmonary emboli, secondary to unenhanced technique. LYMPH NODES: No evidence of diffuse lymphadenopathy. KIDNEYS AND URETERS: Low density lesions in the kidneys bilaterally, most likely representing cysts. The largest of these measures 3.6 cm. IMPRESSION: - Findings highly suspicious for a multifocal, scattered bilateral pneumonia, greatest in the lung bases bilaterally. - Diffuse esophageal dilatation, cause not identified. - Small left pleural effusion. - Otherwise, no evidence of significant acute process on this unenhanced exam. - See above for remaining findings.
[2017-12-19 07:53] LABS: BLOOD UREA NITROGEN 6 mg/dL (7-17); CALCIUM 8.6 mg/dl (8.6-10.4); GFR AFRICAN-AMERICAN > 60; GFR NON-AFRICAN AMERICAN > 60
--- NOTE | 2017-12-19 12:07 | CP.PCM.CON ---
History of Present Illness - History of Present Illness History of Present Illness: I was asked to evaluate by Dr Centeno Patient is a 82 year old female with a history of dementia HTN, DM who presents with dyspnea. Her CXR was consistent with infiltrate. The patient denies chest pain. echocardiogram was performed and has been reviewed Review of Systems - Review of Systems Systems not reviewed;Unavailable: Dementia Past Patient History - Infectious Disease Hx of Infectious Diseases: None - Tetanus Immunizations Tetanus Immunization: Unknown - Past Medical History & Family History Past Medical History?: Yes - Past Social History Smoking Status: Unknown If Ever Smoked - CARDIAC Hx Hypercholesterolemia: Yes Hx Hypertension: Yes - PULMONARY Hx Respiratory Disorders: No - NEUROLOGICAL Hx Alzheimer's Disease: Yes Hx Dementia: Yes - HEENT Hx HEENT Problems: No - RENAL Hx Chronic Kidney Disease: No - ENDOCRINE/METABOLIC Hx Endocrine Disorders: No - HEMATOLOGICAL/ONCOLOGICAL Hx Blood Disorders: Yes Hx Hepatitis C: Yes - INTEGUMENTARY Hx Dermatological Problems: No - MUSCULOSKELETAL/RHEUMATOLOGICAL Hx Falls: No - GASTROINTESTINAL Hx Gastritis: Yes - GENITOURINARY/GYNECOLOGICAL Hx Genitourinary Disorders: No - PSYCHIATRIC Hx Substance Use: No - SURGICAL HISTORY Hx Appendectomy: Yes - ANESTHESIA Hx Anesthesia: Yes Hx Anesthesia Reactions: No Hx Malignant Hyperthermia: No Meds Allergies/Adverse Reactions: Allergies Allergy/AdvReac Type Severity Reaction Status Date / Time benazepril AdvReac ANGIOEDEMA Verified 12/17/17 10:03 - Medications Medications: Current Medications Carvedilol (Coreg) 3.125 mg PO BID [facility] Last Admin: 12/19/17 10:04 Dose: 3.125 mg Clopidogrel Bisulfate (Plavix) 75 mg PO DAILY [facility] Last Admin: 12/19/17 10:04 Dose: 75 mg Famotidine (Pepcid) 20 mg PO DAILY [facility] Last Admin: 12/19/17 10:04 Dose: 20 mg Heparin Sodium (Porcine) (Heparin) 5,000 units SC Q8 [facility] Last Admin: 12/19/17 05:46 Dose: 5,000 units Azithromycin 500 mg/ Sodium (Chloride) 250 mls @ 167 mls/hr IVPB Q24H RADHA PRN Reason: Protocol Last Admin: 12/18/17 12:40 Dose: 167 mls/hr Ceftriaxone Sodium 1 gm/ (Sodium Chloride) 100 mls @ 100 mls/hr IVPB Q24H RADHA PRN Reason: Protocol Last Admin: 12/18/17 12:37 Dose: 100 mls/hr Metformin HCl (Glucophage) 500 mg PO BID [facility] Last Admin: 12/19/17 10:05 Dose: 500 mg Physical Exam - Constitutional Appears: Non-toxic - Head Exam Head Exam: NORMAL INSPECTION - Eye Exam Eye Exam: Normal appearance - ENT Exam ENT Exam: Mucous Membranes Moist - Neck Exam Neck exam: Positive for: Full Rom - Respiratory Exam Respiratory Exam: NORMAL BREATHING PATTERN - Cardiovascular Exam Cardiovascular Exam: REGULAR RHYTHM - GI/Abdominal Exam GI & Abdominal Exam: Normal Bowel Sounds - Rectal Exam Rectal Exam: Deferred - Extremities Exam Extremities exam: Negative for: pedal edema - Back Exam Back exam: NORMAL INSPECTION - Neurological Exam Neurological exam: Alert, Oriented x3 - Psychiatric Exam Psychiatric exam: Normal Affect - Skin Skin Exam: Normal Color Results - Vital Signs Recent Vital Signs: Last Vital Signs Temp 98.2 F 12/19/17 07:00 Pulse 72 12/19/17 07:35 Resp 20 12/19/17 07:00 BP 134/76 12/19/17 07:00 Pulse Ox 96 12/19/17 07:00 - Labs Result Diagrams: 12/17/17 11:00 12/19/17 07:28 Labs: Laboratory Results - last 24 hr 12/18/17 12/18/17 12/18/17 06:36 11:11 16:00 Sodium Potassium Chloride Carbon Dioxide Anion Gap BUN Creatinine Est GFR ( Amer) Est GFR (Non-Af Amer) POC Glucose (mg/dL) 193 H 91 Random Glucose Hemoglobin A1c 7.1 H Calcium Magnesium 12/18/17 12/19/17 12/19/17 21:03 06:25 07:28 Sodium 139 Potassium 4.3 Chloride 102 Carbon Dioxide 30 Anion Gap 12 BUN 6 L Creatinine 0.8 Est GFR ( Amer) > 60 Est GFR (Non-Af Amer) > 60 POC Glucose (mg/dL) 124 H 78 Random Glucose 83 Hemoglobin A1c Calcium 8.6 Magnesium 2.0 - EKG Data EKG Interpreted by: Myself EKG shows normal: Sinus rhythm Assessment & Plan (1) Diastolic dysfunction Assessment and Plan: I reviewed the echocardiogram. The left ventricular function is normal. The patient has Type II diastolic dysfunction. SHe is currently clinically stable. Givne diabetes she is at risk for underlying coronary artery disease. She does not appear to be an ideal candidate for invasive cardiac measures, therefore i will attempt medical therapy with ASA. beta raheel statin therapy. Status: Acute (2) Hypertension Status: Acute
[2017-12-19] MEDS: Azithromycin 500 MG in Sodium Chloride 0.9% 250 ML IVPB SCH (13:00)
[2017-12-20] MEDS: Azithromycin 500 MG in Sodium Chloride 0.9% 250 ML IVPB SCH (13:21)
--- NOTE | 2017-12-20 15:02 | CARD ---
APPROVED REPORT EKG Measurement Heart [id number] [id number] <Conclusion> Sinus rhythm with marked sinus arrhythmia Possible Left atrial enlargement Anterior infarct, age undetermined Abnormal ECG
--- NOTE | 2017-12-20 15:02 | CARD ---
APPROVED REPORT EKG Measurement Heart [id number] [id number] <Conclusion> Sinus rhythm with marked sinus arrhythmia Nonspecific T wave abnormality Abnormal ECG
--- NOTE | 2017-12-20 15:19 | CARD ---
APPROVED REPORT EXAM: Two-dimensional and M-mode echocardiogram with Doppler and color Doppler. Other Information Quality : AverageRhythm : NSR INDICATION Pleural Effusion RISK FACTORS Hypertension Hyperlipidemia Diabetes M-Mode DIMENSIONS RVDd2.29 (2.1-3.2cm)Left Atrium (MM)3.80 (2.5-4.0cm) IVSd0.66 (0.7-1.1cm)Aortic Root2.80 (2.2-3.7cm) LVDd4.35 (4.0-5.6cm)PWd0.74 (0.7-1.1cm) FS (%) 43 %LVDs2.47 (2.0-3.8cm) LVEF (%)75 (>50%) Aortic Valve AoV Peak Zmvuomho496.5cm/Prema Peak GR.11mmHg Mitral Valve MV E Ayuupbna92.1cm/sMV A Wypowagd182.1cm/sE/A ratio0.7 TDI E/Lateral E'0.0E/Medial E'0.0 Tricuspid Valve TR Peak Qvrcwnng129kl/sTR Peak Gr.[id number] LEFT VENTRICLE The left ventricle is normal size. There is normal left ventricular wall thickness. The Ejection Fraction is >70%. Transmitral Doppler flow pattern is Grade I-abnormal relaxation pattern.mildly elevateed la pressures. RIGHT VENTRICLE The right ventricle is normal size. The right ventricular systolic function is normal. ATRIA The left atrium size is normal. The right atrium size is normal. The interatrial septum is intact with no evidence for an atrial septal defect. AORTIC VALVE The aortic valve is mildly sclerotic. The aortic valve is trileaflet. No aortic regurgitation is present. MITRAL VALVE The mitral valve is thickened but opens well. Mitral regurgitation is mild. TRICUSPID VALVE The tricuspid valve is normal in structure. There is mild tricuspid regurgitation. Right ventricular systolic pressure is estimated at 39 mmHg. There is mild pulmonary hypertension. PULMONIC VALVE The pulmonary valve is normal in structure. GREAT VESSELS The aortic root is normal size. The aortic root displays mild sclerocalcific changes of the aortic root. The IVC is normal in size and collapses >50% with inspiration. PERICARDIAL EFFUSION minimal posterior pericardial effusion is noted. <Conclusion> The left ventricle is normal size. There is normal left ventricular wall thickness. The Ejection Fraction is >70%. Transmitral Doppler flow pattern is Grade I-abnormal relaxation pattern. Mitral regurgitation is mild. There is mild tricuspid regurgitation. Right ventricular systolic pressure is estimated at 39 mmHg. There is mild pulmonary hypertension. Transmitral Doppler flow pattern is Grade I-abnormal relaxation pattern.mildly elevateed la pressures. The aortic root is normal size. The aortic root displays mild sclerocalcific changes of the aortic root.
[2017-12-20 16:14] VITALS: BP 157/77; PULSE 62; RESP 20; TEMP 97.4; O2SAT 100
--- NOTE | 2017-12-20 18:12 | CP.PCM.DIS ---
Provider - Provider Date of Admission: 12/17/17 12:39 Attending physician: Sheryl Centeno MD Time Spent in preparation of Discharge (in minutes): 20 Hospital Course - Lab Results Lab Results: Micro Results 12/17/17 12:30 Blood Blood Culture - Preliminary NO GROWTH AFTER 3 DAYS 12/17/17 10:25 Blood Blood Culture - Preliminary NO GROWTH AFTER 3 DAYS Most Recent Lab Values WBC 9.1 K/uL (4.8-10.8) 12/17/17 11:00 RBC 4.27 Mil/uL (3.80-5.20) 12/17/17 11:00 Hgb 11.9 g/dL (11.0-16.0) 12/17/17 11:00 Hct 35.9 % (34.0-47.0) 12/17/17 11:00 MCV 84.1 fL (81.0-99.0) 12/17/17 11:00 MCH 28.0 pg (27.0-31.0) 12/17/17 11:00 MCHC 33.3 g/dL (33.0-37.0) 12/17/17 11:00 RDW 12.7 % (11.5-14.5) 12/17/17 11:00 Plt Count 220 K/uL (130-400) 12/17/17 11:00 MPV 10.7 fL (7.2-11.7) 12/17/17 11:00 Neut % (Auto) 78.3 % (50.0-75.0) H 12/17/17 11:00 Lymph % (Auto) 14.5 % (20.0-40.0) L 12/17/17 11:00 [place] % (Auto) 5.1 % (0.0-10.0) 12/17/17 11:00 Eos % (Auto) 1.4 % (0.0-4.0) 12/17/17 11:00 Baso % (Auto) 0.7 % (0.0-2.0) 12/17/17 11:00 Neut # (Auto) 7.1 K/uL (1.8-7.0) H 12/17/17 11:00 Lymph # (Auto) 1.3 K/uL (1.0-4.3) 12/17/17 11:00 [place] # (Auto) 0.5 K/uL (0.0-0.8) 12/17/17 11:00 Eos # (Auto) 0.1 K/uL (0.0-0.7) 12/17/17 11:00 Baso # (Auto) 0.1 K/uL (0.0-0.2) 12/17/17 11:00 PT 13.4 SECONDS (9.7-12.2) H 12/17/17 14:53 INR 1.2 12/17/17 14:53 APTT 30 SECONDS (21-34) 12/17/17 14:53 Sodium 139 mmol/L (132-148) 12/19/17 07:28 Potassium 4.3 mmol/L (3.6-5.2) 12/19/17 07:28 Chloride 102 mmol/L (98-107) 12/19/17 07:28 Carbon Dioxide 30 mmol/L (22-30) 12/19/17 07:28 Anion Gap 12 (10-20) 12/19/17 07:28 BUN 6 mg/dL (7-17) L 12/19/17 07:28 Creatinine 0.8 mg/dL (0.7-1.2) 12/19/17 07:28 Est GFR ( Amer) > 60 12/19/17 07:28 Est GFR (Non-Af Amer) > 60 12/19/17 07:28 POC Glucose (mg/dL) 123 mg/dL (65-110) H 12/20/17 16:46 Random Glucose 83 mg/dL (65-105) 12/19/17 07:28 Hemoglobin A1c 7.1 % (4.2-6.5) H 12/18/17 06:36 Calcium 8.6 mg/dl (8.6-10.4) 12/19/17 07:28 Magnesium 2.0 mg/dL (1.6-2.3) 12/19/17 07:28 Total Bilirubin 0.6 mg/dL (0.2-1.3) 12/17/17 11:00 AST 26 U/L (14-36) 12/17/17 11:00 ALT < 6 U/L (9-52) L D 12/17/17 11:00 Alkaline Phosphatase 81 U/L (38-126) 12/17/17 11:00 Total Creatine Kinase 21 U/L (30-135) L 12/18/17 04:30 CK-MB (Mass) 0.35 ng/mL (0.0-3.38) 12/18/17 04:30 Troponin I < 0.0120 ng/mL (0.00-0.120) 12/18/17 04:30 NT-Pro-B Natriuret Pep 166 pg/mL (0-900) 12/17/17 11:00 Total Protein 7.1 g/dL (6.3-8.3) 12/17/17 11:00 Albumin 3.3 g/dL (3.5-5.0) L 12/17/17 11:00 Globulin 3.8 gm/dL (2.2-3.9) 12/17/17 11:00 Albumin/Globulin Ratio 0.9 (1.0-2.1) L 12/17/17 11:00 Urine Color Yellow (YELLOW) 12/17/17 14:04 Urine Clarity Clear (Clear) 12/17/17 14:04 Urine pH 7.0 (5.0-8.0) 12/17/17 14:04 Ur Specific [place] 1.009 (1.003-1.030) 12/17/17 14:04 Urine Protein Negative mg/dL (NEGATIVE) 12/17/17 14:04 Urine Glucose (UA) 3+ mg/dL (Normal) H 12/17/17 14:04 Urine Ketones Negative mg/dL (NEGATIVE) 12/17/17 14:04 Urine Blood Negative (NEGATIVE) 12/17/17 14:04 Urine Nitrate Negative (NEGATIVE) 12/17/17 14:04 Urine Bilirubin Negative (NEGATIVE) 12/17/17 14:04 Urine Urobilinogen 2.0 mg/dL (0.2-1.0) H 12/17/17 14:04 Ur Leukocyte Esterase Neg Adam/uL (Negative) 12/17/17 14:04 Urine WBC (Auto) 1 /hpf (0-5) 12/17/17 14:04 Urine RBC (Auto) < 1 /hpf (0-3) 12/17/17 14:04 Ur Squamous Epith Cells 3 /hpf (0-5) 12/17/17 14:04 Urine Bacteria Rare (<OCC) 12/17/17 14:04 - Hospital Course Hospital Course: PT admitted with sob ct and cxr confimed pnemonia seen by cardio no [place] negative tropoinin doing well no sob no fever Discharge Exam - Head Exam Head Exam: NORMAL INSPECTION - ENT Exam ENT Exam: Mucous Membranes Moist Discharge Plan - Follow Up Plan Condition: GOOD
== END 2017-12-20 21:24 | disposition home or self-care (01) ==
LOC: C.ER 09:58 → C.9E 12:39 → C.6T 16:10
PROVIDERS: ADMIT Internal Medicine; ATTEND Internal Medicine
DX: G30.9 Alzheimer's disease, unspecified (principal); F02.80 Dementia in other diseases classified elsewhere, unspecified severity, without behavioral disturbance, psychotic disturbance, mood disturbance, and anxiety; I10 Essential (primary) hypertension; E78.00 Pure hypercholesterolemia, unspecified; Z86.73 Personal history of transient ischemic attack (TIA), and cerebral infarction without residual deficits; Z90.49 Acquired absence of other specified parts of digestive tract; Z80.3 Family history of malignant neoplasm of breast
CPT/HCPCS: 36415; 71045; 71250; 80048; 80053; 81001; 82550; 82553; 82948; 83036; 83735; 83880; 84484; 85025; 85610; 85730; 87040; 93005; 93306; 96365; 96372; 99285; G0378; J0456; J0696; J1644; J7050

== ENCOUNTER 2017-12-30 12:33 | Emergency (ER) | payer MEDICARE ==
[2017-12-30 12:38] VITALS: BMI 22.4
[2017-12-30 12:40] VITALS: O2SAT 99
--- NOTE | 2017-12-30 13:52 | RAD ---
PROCEDURE: CHEST RADIOGRAPH, 1 VIEW HISTORY: chest pain COMPARISON: 12/17/2017 single-view chest. 12/18/2017 CT thorax FINDINGS: LUNGS: Interval improvement with respect aeration at the lung bases left greater than right. Residual infiltrate/ atelectasis would be categorized as mild. PLEURA: No pneumothorax or pleural fluid seen. CARDIOVASCULAR: No radiographic findings to suggest acute or significant cardiovascular disease. OSSEOUS STRUCTURES: No significant abnormalities. VISUALIZED UPPER ABDOMEN: Normal. OTHER FINDINGS: None. IMPRESSION: Substantial improvement in lower lobe infiltrates.
--- NOTE | 2017-12-30 14:00 | C.PDOC ---
History Of Present Illness 82 y/o female with no significant PMHx presents to the ED for complaints of becoming suddenly anxious prior to arrival. No known precipitant to onset of symptoms. States she was getting up to go to the bathroom when she suddenly felt dizzy and overwhelmed. Currently all symptoms have resolved and patient states she feels like her normal self. Denies any associated chest pain, SOB, nausea, vomiting, diarrhea, headaches, palpitations, numbness, or weakness. Time Seen by Provider: 12/30/17 13:13 Chief Complaint (Nursing): Dizziness/Lightheaded History Per: Patient History/Exam Limitations: no limitations Onset/Duration Of Symptoms: Hrs Current Symptoms Are (Timing): Gone Past Medical History Reviewed: Historical Data, Nursing Documentation, Vital Signs Vital Signs: Last Vital Signs Temp 97.4 F L 12/30/17 12:36 Pulse 66 12/30/17 13:22 Resp 20 12/30/17 13:22 BP 129/71 12/30/17 13:22 Pulse Ox 99 12/30/17 14:44 - Medical History PMH: Alzheimer's Disease, Dementia, Gastritis, HTN, Hypercholesterolemia Denies: Crohn's Disease, Chronic Kidney Disease Surgical History: Appendectomy Family History: States: No Known Family Hx - Social History Hx Tobacco Use: No Hx Alcohol Use: No Hx Substance Use: No - Immunization History Hx Tetanus Toxoid Vaccination: No Hx Influenza Vaccination: No Hx Pneumococcal Vaccination: No Review Of Systems Except As Marked, All Systems Reviewed And Found Negative. Neurological: Positive for: Dizziness Psych: Positive for: Anxiety Physical Exam - Physical Exam Appears: Well, Non-toxic, No Acute Distress Skin: Normal Color, Warm, Dry Head: Atraumatic, Normacephalic Eye(s): bilateral: Normal Inspection, PERRL, EOMI Nose: Normal Oral Mucosa: Moist Neck: Normal ROM, Supple Cardiovascular: Rhythm Regular, No Murmur Respiratory: Normal Breath Sounds, No Rales, No Rhonchi, No Wheezing Gastrointestinal/Abdominal: Soft, No Tenderness, No Distention Back: Normal Inspection, No CVA Tenderness, No Vertebral Tenderness Extremity: Bilateral: Atraumatic, Normal Color And Temperature, Normal ROM Neurological/Psych: Oriented x3, Normal Speech, Normal Cranial Nerves, Normal Motor, Normal Sensation, Other (No focal deficits) ED Course And Treatment - Laboratory Results Result Diagrams: 12/30/17 14:00 12/30/17 14:00 O2 Sat by Pulse Oximetry: 99 (RA) Pulse Ox Interpretation: Normal - Other Rad CXR X-Ray: Viewed By Me, Read By Radiologist Interpretation: Accession No. : [id number]. Patient Name / ID : GRETA WEIR / [id number]. Exam Date : 12/30/2017 13:38:24 ( Approved ). Study Comment : Sex / Age : F / 82Y. Creator : Mukesh Bonilla MD. Dictator : Mukesh Bonilla MD. Professional Caster : Track Laminating Machine Tender : Mukesh Bonilla MD. Approver2 : Report Date : 12/30/2017 13:50:54. My Comment : . PROCEDURE: CHEST RADIOGRAPH, 1 VIEW. HISTORY: chest pain. COMPARISON: 07/2017 single-view chest. 12/18/2017 CT thorax. FINDINGS: LUNGS: Interval improvement with respect aeration at the lung bases left greater than right. Residual infiltrate/ atelectasis would be categorized as mild. PLEURA: No pneumothorax or pleural fluid seen. CARDIOVASCULAR: No radiographic findings to suggest acute or significant cardiovascular disease. OSSEOUS STRUCTURES: No significant abnormalities. VISUALIZED UPPER ABDOMEN: Normal. OTHER FINDINGS: None. IMPRESSION: Substantial improvement in lower lobe infiltrates. Medical Decision Making Medical Decision Making: Initial Impression: Dizziness (resolved) ekg - nsr at rate of 59 bpm with nrm intervals, nrm axis, nonspecific twave changes Time: 13:34 Initial Plan: --EKG --CMP --CBC --Troponin I --Chest x-ray --Urinalysis Labs reviewed, and are grossly normal. CXR shows no acute disease. patient remained comfortable without further complaint. Will discharge home to follow up with pmd in 2 days Disposition Counseled Patient/Family Regarding: Studies Performed, Diagnosis, Need For Followup - Disposition Referrals: Mg Larkin MD [Medical Doctor] - Disposition: HOME/ ROUTINE Disposition Time: 15:02 Condition: STABLE Additional Instructions: follow up with your doctor in 2 days call to make an appointment continue your home medications return to ER if symptoms worsens or progress Instructions: Panic Disorder, Stress Forms: [facility] (Ukrainian), General Discharge Instructions - Clinical Impression Clinical Impression: Nervousness - Scribe Statement The provider has reviewed the documentation as recorded by the Scribe (Shanti Goldstein) Provider Attestation: All medical record entries made by the Scribe were at my direction and personally dictated by me. I have reviewed the chart and agree that the record accurately reflects my personal performance of the history, physical exam, medical decision making, and the department course for this patient. I have also personally directed, reviewed, and agree with the discharge instructions and disposition.
[2017-12-30 14:04] LABS: BASO # 0.1 K/uL (0.0-0.2); BASO % 1.4 % (0.0-2.0); EOS # 0.1 K/uL (0.0-0.7); EOS % 1.4 % (0.0-4.0); HEMOGLOBIN 12.6 g/dL (11.0-16.0); LYMPH % 30.4 % (20.0-40.0); MEAN CORPUSCULAR HEMOGLOBIN 27.8 pg (27.0-31.0); MEAN CORPUSCULAR HGB CONC 33.5 g/dL (33.0-37.0); MONO # 0.5 K/uL (0.0-0.8); MONO % 7.4 % (0.0-10.0); NEUT # 3.9 K/uL (1.8-7.0); NEUT % 59.4 % (50.0-75.0); NRBC % 0.1 % (0.0-2.0); RBC 4.52 Mil/uL (3.80-5.20); RED CELL DISTRIBUTION WIDTH 13.1 % (11.5-14.5); WHITE BLOOD COUNT 6.5 K/uL (4.8-10.8)
[2017-12-30 14:23] LABS: SQUAMOUS EPITHIAL 2 /hpf (0-5); URINE BACTERIA RARE (<OCC); URINE BILIRUBIN NEGATIVE (NEGATIVE); URINE BLOOD NEGATIVE (NEGATIVE); URINE CLARITY Clear (Clear); URINE COLOR Yellow (YELLOW); URINE GLUCOSE (UA) NORMAL (Normal); URINE LEUKOCYTE ESTERASE NEG Leu/uL (Negative); URINE PROTEIN NEGATIVE (NEGATIVE); URINE UROBILINOGEN NORMAL mg/dL (0.2-1.0)
[2017-12-30 14:33] LABS: ALB/GLOB RATIO 1.1 (1.0-2.1); ALBUMIN 3.9 g/dL (3.5-5.0); ALT/SGPT 18 U/L (9-52); AST/SGOT 36 U/L (14-36); BLOOD UREA NITROGEN 10 mg/dL (7-17); GFR AFRICAN-AMERICAN > 60; GFR NON-AFRICAN AMERICAN 60
[2017-12-30 15:21] VITALS: BP 137/73; PULSE 68; RESP 18; TEMP 98.2
--- NOTE | 2018-01-02 15:34 | CARD ---
APPROVED REPORT EKG Measurement Heart [id number] [id number] <Conclusion> Sinus bradycardia Possible Left atrial enlargement Borderline ECG
== END 2017-12-30 15:55 | disposition home or self-care (01) ==
LOC: C.ER 12:33
DX: R45.0 Nervousness (principal)